=== PATIENT | female | born 1980 | race Caucasian/White ===

== ENCOUNTER 2018-08-04 15:06 | Emergency (ER) | payer OTHER, SELFPAY ==
[2018-08-04 15:12] VITALS: BP 119/78; PULSE 79; RESP 18; TEMP 36.6; O2SAT 96
--- NOTE | 2018-08-04 16:45 | PC.NURSE ---
pt states she gets to coughing and then starts throwing up because she cannot quit coughing. Says she has had cough syrup with codine, naproxin, and inhalers and none of them are helping and she states she feels worse today.
--- NOTE | 2018-08-04 17:04 | ED.URI ---
HPI - URI/Sore Throat <Paty Larsen PA-C - Last Filed: 08/04/18 21:54> General Chief Complaint: Upper Respiratory Symptoms Stated Complaint: cant breath, states pneumonia Time Seen by Provider: 08/04/18 16:28 Source: patient Mode of arrival: ambulatory Limitations: no limitations History of Present Illness HPI Narrative: This 37-year-old insulin-dependent diabetic female comes to ED due to persistent cough and chest pain. She states that she was seen at another local ED 5 days ago (records here) due to flank pain and was diagnosed with bibasilar pneumonia. She states that symptoms started with cough and pain in the flank area along with sweats and chills. She states that her throat is sore from the frequent cough and chest pain started on . She states that her ribs are sore all over and she feels like the pain is from coughing. It is also painful to take a deep breath. She states that the cough keeps her from sleep. She had a CT scan done in the ED as initially there was concern for kidney stone, and that showed the pneumonia. She states that she does not have earache or sinus pain. She has had some headache. She denies any new pain or swelling in her extremities. She denies any new rash. Her young daughter had pneumonia prior but is getting better. She was prescribed cephalexin as well as inhaler and dexamethasone. She thinks that the inhaler might help the cough briefly but still unable to sleep due to it. She states it is hard to tell whether she is just not making progress or getting worse due to lack of sleep from the cough. She states that in the last couple of days she has not had a fever higher than 100.2. She continues to have sweats and chills. She denies any history of blood clots Outside records show no urine bacteria on micro, negative urine HCG, negative influenza test, bilateral pneumonia on CT Related Data Home Medications Medication Instructions Recorded Confirmed insulin glargine (U-100) 100 12 unit SUBCUT DAILY 03/18/18 06/18/18 unit/mL (3 mL) subcutaneous pen insulin glulisine (U- 100) 100 2 unit SUBCUT BID ml 03/18/18 06/18/18 unit/mL subcutaneous pen liraglutide 0.6 mg/0.1 mL (18 mg/3 1.8 mg SUBCUT DAILY ml 03/18/18 06/18/18 mL) subcutaneous pen injector metformin 1,000 mg tablet 1,000 mg PO DAILY 03/18/18 06/18/18 Previous Rx's Medication Instructions Recorded verapamil ER 120 mg 24 hr 120 mg PO BID #60 cap 06/03/18 capsule,extended release benzonatate [Tessalon Perles] 200 mg PO Q8HR #20 cap 08/04/18 levofloxacin [Levaquin] 500 mg PO DAILY 7 Days #7 tab 08/04/18 Allergies Allergy/AdvReac Type Severity Reaction Status Date / Time acetaminophen [From Vicodin] AdvReac Mild Headache Verified 06/18/18 13:40 doxycycline AdvReac Mild Headache Verified 06/18/18 13:40 eletriptan AdvReac Mild Rash/Anxiet Verified 06/18/18 13:40 y hydrocodone [From Vicodin] AdvReac Mild Headache Verified 06/18/18 13:40 morphine AdvReac Mild Headache Verified 06/18/18 13:40 Review of Systems <Paty Larsen PA-C - Last Filed: 08/04/18 21:54> Review of Systems ROS Unobtainable: All systems reviewed & are unremarkable except as noted in HPI and below PFSH <Paty Larsen PA-C - Last Filed: 08/04/18 21:54> Medical History Chronic migraine (Chronic) Diabetes (Chronic) Surgical History No pertinent past surgical history (Chronic) Hx of right knee surgery (Resolved) Hx of tonsillectomy (Resolved) Family History Mother Gallstone Grandmother Gallstone Diabetes mellitus Stroke Grandfather Heart disease Cancer Social History Smoking Status: Never smoker Family History Mother Gallstone Grandmother Gallstone Diabetes mellitus Stroke Grandfather Heart disease Cancer Social History Smoking Status: Never smoker Exam <PRASHANTH Corey Last Filed: 08/04/18 21:54> Narrative Exam Narrative: GENERAL APPEARANCE: Patient sitting comfortably, in no distress. HEAD: No sinus TTP. EYES: PERRL, EOMI. EARS: Normal auditory canals, TMS intact with normal light reflexes. ORAL CAVITY: Normal oropharynx. THROAT: Clear. NECK/THYROID: Neck supple, full range of motion, no cervical lymphadenopathy. LUNGS: Clear to auscultation bilaterally, splinting slightly, dry, hoarse cough on exam CHEST: Generalized tenderness over the ribs and sternum HEART: RRR without murmur, nl S1, S2, no S3 or S4. DERMATOLOGIC: No exanthem Initial Vital Signs Initial Vital Signs: Vital Signs Temperature 97.9 F 08/04/18 15:12 Pulse Rate 79 08/04/18 15:12 Respiratory Rate 18 08/04/18 15:12 Blood Pressure 119/78 08/04/18 15:12 Pulse Oximetry 96 08/04/18 15:12 <Kira Vargas DO - Last Filed: 08/05/18 08:11> Initial Vital Signs Initial Vital Signs: Vital Signs Temperature 97.9 F 08/04/18 15:12 Pulse Rate 79 08/04/18 15:12 Respiratory Rate 18 08/04/18 15:12 Blood Pressure 119/78 08/04/18 15:12 Pulse Oximetry 96 08/04/18 15:12 Course <PRASHANTH Corey Last Filed: 08/04/18 21:54> Additional Information: Patient is resting comfortably after Tessalon Perle and nebulizer treatment. She reported improvement in her chest tightness and was coughing less. She was also given a spacer and training for her inhaler. She reports at least no improvement since starting on cephalexin, and we discussed concern for coverage of atypical organisms and broader coverage of pneumonia given her insulin-dependent diabetes and reactive airways. She has taken Cipro without problems in the past so she preferred to try Levaquin rather than change to azithromycin and amoxicillin or Augmentin. She was given 1st dose this evening and will continue that along with her inhaler and given a prescription for Tessalon Perles. She does not appear to need hospital admission at this time, but agrees to return to ED if acutely worsening again. Otherwise, she will follow up with her PCP in the next few days. Orders Ordered: Discontinued Medications Albuterol (Ventolin) 2.5 mg INH NOW ONE Stop: 08/04/18 17:28 Last Admin: 08/04/18 17:40 Dose: 2.5 mg Albuterol (Ventolin Hfa) 2 puff INH NOW ONE Stop: 08/04/18 17:57 Last Admin: 08/04/18 17:50 Dose: Not Given Albuterol/Ipratropium (Duoneb) 3 ml INH NOW ONE Stop: 08/04/18 17:28 Last Admin: 08/04/18 17:34 Dose: 3 ml Benzonatate (Tessalon Perles) 200 mg PO NOW ONE Stop: 08/04/18 17:18 Last Admin: 08/04/18 17:32 Dose: 200 mg Levofloxacin (Levaquin) 500 mg PO NOW ONE Stop: 08/04/18 19:23 Last Admin: 08/04/18 19:24 Dose: 500 mg Vital Signs - 8 hr 08/04/18 15:12 08/04/18 17:34 08/04/18 17:41 Temperature 97.9 F Pulse Rate 79 80 84 Respiratory Rate 18 18 18 Blood Pressure 119/78 Pulse Oximetry 96 96 97 08/04/18 19:55 Temperature 98.8 F Pulse Rate 85 Respiratory Rate 16 Blood Pressure 112/64 Pulse Oximetry 95 <Kira Vargas, - Last Filed: 08/05/18 08:11> Orders Ordered: Discontinued Medications Albuterol (Ventolin) 2.5 mg INH NOW ONE Stop: 08/04/18 17:28 Last Admin: 08/04/18 17:40 Dose: 2.5 mg Albuterol (Ventolin Hfa) 2 puff INH NOW ONE Stop: 08/04/18 17:57 Last Admin: 08/04/18 17:50 Dose: Not Given Albuterol/Ipratropium (Duoneb) 3 ml INH NOW ONE Stop: 08/04/18 17:28 Last Admin: 08/04/18 17:34 Dose: 3 ml Benzonatate (Tessalon Perles) 200 mg PO NOW ONE Stop: 08/04/18 17:18 Last Admin: 08/04/18 17:32 Dose: 200 mg Levofloxacin (Levaquin) 500 mg PO NOW ONE Stop: 08/04/18 19:23 Last Admin: 08/04/18 19:24 Dose: 500 mg Vital Signs - 8 hr 08/04/18 15:12 08/04/18 17:34 08/04/18 17:41 Temperature 97.9 F Pulse Rate 79 80 84 Respiratory Rate 18 18 18 Blood Pressure 119/78 Pulse Oximetry 96 96 97 08/04/18 19:55 Temperature 98.8 F Pulse Rate 85 Respiratory Rate 16 Blood Pressure 112/64 Pulse Oximetry 95 MDM - URI/Sore Throat <Paty Larsen PA-C - Last Filed: 08/04/18 21:54> Imaging Data Chest x-ray: Radiologist's impression: [address] [address] XRay Report Signed Patient: Martine Sanchez CMR#: [id number] : 1980Acct:[id number] Age/Sex: 37 / FDate of Service: 08/04/18 Loc: ED Accession Number: [id number] Procedure: XR chest 2V Ordering Provider: Paty Larsen P.A-C PROCEDURE: XR CHEST 2V INDICATIONS: cough, CP, dx RM and LLL pneumonia 07/30. ?worse TECHNIQUE: 2 views of the chest were acquired. COMPARISON: None. FINDINGS: Surgical changes and devices: None. Lungs and pleura: Parenchymal opacity right mid and lower lung zone without a visible pleural effusion. Mild retrocardiac strandy change at the left lung base. No pneumothorax. Mediastinum: Mediastinal contours are normal. Heart size is normal. Bones and chest wall: No suspicious bony abnormalities. Soft tissues appear unremarkable. IMPRESSION: Parenchymal opacity right mid and lower lung and possibly left lower lobe as well. No pleural effusions visible. Dictated by: Melissa Pineda M.D. on 08/04/2018 at 18:58 Approved by: Melissa Pineda M.D. on 08/04/2018 at 18:59 Discharge Plan Departure Patient Disposition: Home Clinical Impression: Pneumonia Qualifiers: Pneumonia type: due to unspecified organism Laterality: bilateral Lung location: unspecified part of lung Qualified Code(s): J18.9 - Pneumonia, unspecified organism Mild reactive airways disease Qualifiers: Asthma persistence: intermittent Asthma complication type: with acute exacerbation Qualified Code(s): J45.21 - Mild intermittent asthma with (acute) exacerbation Discharge Date/Time: 08/04/18 19:56 Interventions: ED Discharge Assessment Last Done: 08/04/18 19:55 Instructions: DI for Pneumonia -- Adult, DI for Reactive Airway Disease-Adult Activity Restrictions/Additional Instructions: Please stop the cephalexin. We have given you the 1st dose of Levaquin (levofloxacin) this evening since you did well with its cousin, Martha, in the past. I have sent a prescription for that to your pharmacy ([facility]) to peanut picker tomorrow. I have also sent a prescription for the cough pill that we gave you tonight that seemed to help. Please continue to use the inhaler with the spacer as much as needed for cough and tight chest since the breathing treatments seem to help this evening as well. If you are feeling acutely worse, you should return to the closest ED, but otherwise you should follow-up with your PCP in the next 2 or 3 days to assess your progress. Prescriptions: New benzonatate [Tessalon Perles] 100 mg capsule 200 mg PO Q8HR Qty: 20 RF: 0 levofloxacin [Levaquin] 500 mg tablet 500 mg PO DAILY 7 Days Qty: 7 RF: 0 No Action metformin 1,000 mg tablet 1,000 mg PO DAILY RF: 0 insulin glargine [Lantus Solostar U-100 Insulin] 100 unit/mL (3 mL) insulin pen 12 unit SUBCUT DAILY RF: 0 insulin glulisine U-100 [Apidra SoloStar U-100 Insulin] 100 unit/mL insulin pen 2 unit SUBCUT BID RF: 0 liraglutide [Victoza 2-Roberto Carlos] 0.6 mg/0.1 mL (18 mg/3 mL) pen injector 1.8 mg SUBCUT DAILY RF: 0 verapamil 120 mg capsule,ext rel. pellets 24 hr 120 mg PO BID Qty: 60 RF: 2 Referrals: Giselle Hampton PA-C [Primary Care Provider] - <Kira Vargas DO - Last Filed: 08/05/18 08:11> Cosign ED Attending Daronature Attestation: I was immediately available in the department for consultation. Documentation has been reviewed. I agree with assessment and plan.
--- NOTE | 2018-08-04 17:17 | DI.RAD.S_ITS ---
PROCEDURE: XR CHEST 2V INDICATIONS: cough, CP, dx RM and LLL pneumonia 07/30. ?worse TECHNIQUE: 2 views of the chest were acquired. COMPARISON: None. FINDINGS: Surgical changes and devices: None. Lungs and pleura: Parenchymal opacity right mid and lower lung zone without a visible pleural effusion. Mild retrocardiac strandy change at the left lung base. No pneumothorax. Mediastinum: Mediastinal contours are normal. Heart size is normal. Bones and chest wall: No suspicious bony abnormalities. Soft tissues appear unremarkable. IMPRESSION: Parenchymal opacity right mid and lower lung and possibly left lower lobe as well. No pleural effusions visible. Dictated by: Melissa Pineda M.D. on 08/04/2018 at 18:58 Approved by: Melissa Pineda M.D. on 08/04/2018 at 18:59
--- NOTE | 2018-08-04 17:27 | ED_ITS ---
HPI - URI/Sore Throat <Paty Larsen PA-C - Last Filed: 08/04/18 21:54> General Chief Complaint: Upper Respiratory Symptoms Stated Complaint: cant breath, states pneumonia Time Seen by Provider: 08/04/18 16:28 Source: patient Mode of arrival: ambulatory Limitations: no limitations History of Present Illness HPI Narrative: This 37-year-old insulin-dependent diabetic female comes to ED du e to persistent cough and chest pain. She states that she was seen at another local ED 5 days ago (records here) due to flank pain and was diagnosed with bibasilar pneumonia. She states that symptoms started with cough and pain in the flank area along with sweats and chills. She states that her throat is sore from the frequent cough and chest pain started on . She states that her ribs are sore all over and she feels like the pain is from coughing. It is also painful to take a deep breath. She states that the cough keeps her from sleep. She had a CT scan done in the ED as initially there was concern for kidney stone, and that showed the pneumonia. She states that she does not have earache or sinus pain. She has had some headache. She denies any new pain or swelling in her extremities. She denies any new rash. Her young daughter had pneumonia prior but is getting better. She was prescribed cephalexin as well as inhaler and dexamethasone. She thinks that the inhaler might help the cough briefly but still unable to sleep due to it. She states it is hard to tell whether she is just not making progress or getting worse due to lack of sleep from the cough. She states that in the last couple of days she has not had a fever higher than 100.2. She continues to have sweats and chills. She denies any history of blood clots Outside records show no urine bacteria on micro, negative urine HCG, negative influenza test, bilateral pneumonia on CT Related Data Home Medications Medication Instructions Recorded Confirmed insulin glargine (U-100) 100 12 unit SUBCUT DAILY 03/18/18 06/18/18 unit/mL (3 mL) subcutaneous pen insulin glulisine (U- 100) 100 2 unit SUBCUT BID ml 03/18/18 06/18/18 unit/mL subcutaneous pen liraglutide 0.6 mg/0.1 mL (18 mg/3 1.8 mg SUBCUT DAILY ml 03/18/18 06/18/18 mL) subcutaneous pen injector metformin 1,000 mg tablet 1,000 mg PO DAILY 03/18/18 06/18/18 Previous Rx's Medication Instructions Recorded verapamil ER 120 mg 24 hr 120 mg PO BID #60 cap 06/03/18 capsule,extended release benzonatate [Tessalon Perles] 200 mg PO Q8HR #20 cap 08/04/18 levofloxacin [Levaquin] 500 mg PO DAILY 7 Days #7 tab 08/04/18 Allergies Allergy/AdvReac Type Severity Reaction Status Date / Time acetaminophen [From Vicodin] AdvReac Mild Headache Verified 06/18/18 13:40 doxycycline AdvReac Mild Headache Verified 06/18/18 13:40 eletriptan AdvReac Mild Rash/Anxiet Verified 06/18/18 13:40 y hydrocodone [From Vicodin] AdvReac Mild Headache Verified 06/18/18 13:40 morphine AdvReac Mild Headache Verified 06/18/18 13:40 Review of Systems <Paty Larsen PA-C - Last Filed: 08/04/18 21:54> Review of Systems ROS Unobtainable: All systems reviewed & are unremarkable except as noted in HPI and below PFSH <Paty Larsen PA-C - Last Filed: 08/04/18 21:54> Medical History Chronic migraine (Chronic) Diabetes (Chronic) Surgical History No pertinent past surgical history (Chronic) Hx of right knee surgery (Resolved) Hx of tonsillectomy (Resolved) Family History Mother Gallstone Grandmother Gallstone Diabetes mellitus Stroke Grandfather Heart disease Cancer Social History Smoking Status: Never smoker Family History Mother Gallstone Grandmother Gallstone Diabetes mellitus Stroke Grandfather Heart disease Cancer Social History Smoking Status: Never smoker Exam <Paty Larsen PA-C - Last Filed: 08/04/18 21:54> Narrative Exam Narrative: GENERAL APPEARANCE: Patient sitting comfortably, in no distress. HEAD: No sinus TTP. EYES: PERRL, EOMI. EARS: Normal auditory canals, TMS intact with normal light reflexes. ORAL CAVITY: Normal oropharynx. THROAT: Clear. NECK/THYROID: Neck supple, full range of motion, no cervical lymphadenopathy. LUNGS: Clear to auscultation bilaterally, splinting slightly, dry, hoarse cough on exam CHEST: Generalized tenderness over the ribs and sternum HEART: RRR without murmur, nl S1, S2, no S3 or S4. DERMATOLOGIC: No exanthem Initial Vital Signs Initial Vital Signs: Vital Signs Temperature 97.9 F 08/04/18 15:12 Pulse Rate 79 08/04/18 15:12 Respiratory Rate 18 08/04/18 15:12 Blood Pressure 119/78 08/04/18 15:12 Pulse Oximetry 96 08/04/18 15:12 <Kira Vargas DO - Last Filed: 08/05/18 08:11> Initial Vital Signs Initial Vital Signs: Vital Signs Temperature 97.9 F 08/04/18 15:12 Pulse Rate 79 08/04/18 15:12 Respiratory Rate 18 08/04/18 15:12 Blood Pressure 119/78 08/04/18 15:12 Pulse Oximetry 96 08/04/18 15:12 Course <PRASHANTH Corey Last Filed: 08/04/18 21:54> Additional Information: Patient is resting comfortably after Tessalon Perle and nebulizer treatment. She reported improvement in her chest tightness and was coughing less. She was also given a spacer and training for her inhaler. She reports at least no improvement since starting on cephalexin, and we discussed concern for coverage of atypical organisms and broader coverage of pneumonia given her insulin-dependent diabetes and reactive airways. She has taken Cipro without problems in the past so she preferred to try Levaquin rather than change to azithromycin and amoxicillin or Augmentin. She was given 1st dose this [place] and will continue that along with her inhaler and given a prescription for Tessalon Perles. She does not appear to need hospital admission at this time, but agrees to return to ED if acutely worsening again. Otherwise, she will follow up with her PCP in the next few days. Orders Ordered: Discontinued Medications Albuterol (Ventolin) 2.5 mg INH NOW ONE Stop: 08/04/18 17:28 Last Admin: 08/04/18 17:40 Dose: 2.5 mg Albuterol (Ventolin Hfa) 2 puff INH NOW ONE Stop: 08/04/18 17:57 Last Admin: 08/04/18 17:50 Dose: Not Given Albuterol/Ipratropium (Duoneb) 3 ml INH NOW ONE Stop: 08/04/18 17:28 Last Admin: 08/04/18 17:34 Dose: 3 ml Benzonatate (Tessalon Perles) 200 mg PO NOW ONE Stop: 08/04/18 17:18 Last Admin: 08/04/18 17:32 Dose: 200 mg Levofloxacin (Levaquin) 500 mg PO NOW ONE Stop: 08/04/18 19:23 Last Admin: 08/04/18 19:24 Dose: 500 mg Vital Signs - 8 hr 08/04/18 15:12 08/04/18 17:34 08/04/18 17:41 Temperature 97.9 F Pulse Rate 79 80 84 Respiratory Rate 18 18 18 Blood Pressure 119/78 Pulse Oximetry 96 96 97 08/04/18 19:55 Temperature 98.8 F Pulse Rate 85 Respiratory Rate 16 Blood Pressure 112/64 Pulse Oximetry 95 <Kira Vargas, - Last Filed: 08/05/18 08:11> Orders Ordered: Discontinued Medications Albuterol (Ventolin) 2.5 mg INH NOW ONE Stop: 08/04/18 17:28 Last Admin: 08/04/18 17:40 Dose: 2.5 mg Albuterol (Ventolin Hfa) 2 puff INH NOW ONE Stop: 08/04/18 17:57 Last Admin: 08/04/18 17:50 Dose: Not Given Albuterol/Ipratropium (Duoneb) 3 ml INH NOW ONE Stop: 08/04/18 17:28 Last Admin: 08/04/18 17:34 Dose: 3 ml Benzonatate (Tessalon Perles) 200 mg PO NOW ONE Stop: 08/04/18 17:18 Last Admin: 08/04/18 17:32 Dose: 200 mg Levofloxacin (Levaquin) 500 mg PO NOW ONE Stop: 08/04/18 19:23 Last Admin: 08/04/18 19:24 Dose: 500 mg Vital Signs - 8 hr 08/04/18 15:12 08/04/18 17:34 08/04/18 17:41 Temperature 97.9 F Pulse Rate 79 80 84 Respiratory Rate 18 18 18 Blood Pressure 119/78 Pulse Oximetry 96 96 97 08/04/18 19:55 Temperature 98.8 F Pulse Rate 85 Respiratory Rate 16 Blood Pressure 112/64 Pulse Oximetry 95 MDM - URI/Sore Throat <Paty Larsen PA-C - Last Filed: 08/04/18 21:54> Imaging Data Chest x-ray: Radiologist's impression: [address] [address] XRay Report Signed Patient: Martine Sanchez CMR#: [id number] : 1980Acct:[id number] Age/Sex: 37 / FDate of Service: 08/04/18 Loc: ED Accession Number: [id number] Procedure: XR chest 2V Ordering Provider: aPty Larsen P.A-C PROCEDURE: XR CHEST 2V INDICATIONS: cough, CP, dx RM and LLL pneumonia 07/30. ?worse TECHNIQUE: 2 views of the chest were acquired. COMPARISON: None. FINDINGS: Surgical changes and devices: None. Lungs and pleura: Parenchymal opacity right mid and lower lung zone without a visible pleural effusion. Mild retrocardiac strandy change at the left lung base. No pneumothorax. Mediastinum: Mediastinal contours are normal. Heart size is normal. Bones and chest wall: No suspicious bony abnormalities. Soft tissues appear unremarkable. IMPRESSION: Parenchymal opacity right mid and lower lung and possibly left lower lobe as well. No pleural effusions visible. Dictated by: Melissa Pineda M.D. on 08/04/2018 at 18:58 Approved by: Melissa Pineda M.D. on 08/04/2018 at 18:59 Discharge Plan Departure Patient Disposition: Home Clinical Impression: Pneumonia Qualifiers: Pneumonia type: due to unspecified organism Laterality: bilateral Lung location: unspecified part of lung Qualified Code(s): J18.9 - Pneumonia, unspecified organism Mild reactive airways disease Qualifiers: Asthma persistence: intermittent Asthma complication type: with acute exacerbation Qualified Code(s): J45.21 - Mild intermittent asthma with (acute) exacerbation Discharge Date/Time: 08/04/18 19:56 Interventions: ED Discharge Assessment Last Done: 08/04/18 19:55 Instructions: DI for Pneumonia -- Adult, DI for Reactive Airway Disease-Adult Activity Restrictions/Additional Instructions: Please stop the cephalexin. We have given you the 1st dose of Levaquin (levofloxacin) this evening since you did well with its cousin, Martha, in the past. I have sent a prescription for that to your pharmacy ([facility]) to pickle solution maker tomorrow. I have also sent a prescription for the cough pill that we gave you tonight that seemed to help. Please continue to use the inhaler with the spacer as much as needed for cough and tight chest since the breathing treatments seem to help this evening as well. If you are feeling acutely worse, you should return to the closest ED, but otherwise you should follow-up with your PCP in the next 2 or 3 days to assess your progress. Prescriptions: New benzonatate [Tessalon Perles] 100 mg capsule 200 mg PO Q8HR Qty: 20 RF: 0 levofloxacin [Levaquin] 500 mg tablet 500 mg PO DAILY 7 Days Qty: 7 RF: 0 No Action metformin 1,000 mg tablet 1,000 mg PO DAILY RF: 0 insulin glargine [Lantus Solostar U-100 Insulin] 100 unit/mL (3 mL) insulin pen 12 unit SUBCUT DAILY RF: 0 insulin glulisine U-100 [Apidra SoloStar U-100 Insulin] 100 unit/mL insulin pen 2 unit SUBCUT BID RF: 0 liraglutide [Victoza 2-Roberto Carlos] 0.6 mg/0.1 mL (18 mg/3 mL) pen injector 1.8 mg SUBCUT DAILY RF: 0 verapamil 120 mg capsule,ext rel. pellets 24 hr 120 mg PO BID Qty: 60 RF: 2 Referrals: Giselle Hampton PA-C [Primary Care Provider] - <Kira Vargas DO - Last Filed: 08/05/18 08:11> Cosign ED Attending Daronature Attestation: I was immediately available in the department for consultation. Documentation has been reviewed. I agree with assessment and plan.
[2018-08-04] MEDS: BENZONATATE 100 MG CAPSULE 200 MG PO (17:32)
[2018-08-04 17:34] VITALS: PULSE 80; RESP 18; O2SAT 96
[2018-08-04] MEDS: ALBUTEROL/IPRATROPIUM 3 ML AMPUL INH (17:34)
[2018-08-04] MEDS: ALBUTEROL 2.5 MG/3 ML NEB (ADULT) INH (17:40)
[2018-08-04 17:41] VITALS: PULSE 84; RESP 18; O2SAT 97
[2018-08-04] MEDS: levoFLOXacin 250 MG TABLET 500 MG PO (19:24)
[2018-08-04 19:55] VITALS: BP 112/64; PULSE 85; RESP 16; TEMP 37.1; O2SAT 95
== END 2018-08-04 19:56 | disposition home or self-care (01) ==
PROVIDERS: Emergency Provider Internal Medicine; PCP Physician Assistant
DX: J18.9 Pneumonia, unspecified organism (principal); J45.21 Mild intermittent asthma with (acute) exacerbation
CPT/HCPCS: 71046; 94640; 99282; 99284; J7613

== ENCOUNTER → 2021-05-26 16:13 | Outpatient (CLI) | payer OTHER, SELFPAY ==
[2021-05-26 16:53] LABS: Add Manual Diff / Slide Review NO; Basophils Absolute Auto 100 /uL (0-100); Basophils Percent Auto 0.8 % (0-2); Eosinophils Absolute Auto 100 /uL (0-450); Eosinophils Percent Auto 1.2 % (2-4); Hematocrit 38.2 % (36-46); Hemoglobin 12.8 g/dL (12.0-16.0); Lymphocytes Absolute Auto 3100 /uL (1100-4500); Lymphocytes Percent Auto 34.6 % (25-40); Mean Corpuscular HGB Conc 33.5 % (30-36); Mean Corpuscular Hemoglobin 29.7 PG (26-34); Mean Corpuscular Volume 88.7 fL (80-100); Monocytes Absolute Auto 400 /uL (0-900); Monocytes Percent Auto 4.4 % (3-14); Neutrophils Absolute Auto 5300 /uL (1500-7000); Platelet Count 402 X10^3/uL (150-400); Red Blood Cell Count 4.31 X10^6/uL (4.0-5.2); Red Cell Distribution Width 13.4 % (11.6-14.8); White Blood Cell Count 9.1 X10^3/uL (4.5-11.0)
[2021-05-26 17:03] LABS: Hemoglobin A1C% w Est Avg Glu 8.3 % (4.0-6.0)
[2021-05-26 17:34] LABS: BUN Creatinine Ratio 18.4 (6-22); Blood Urea Nitrogen 9 mg/dL (7-17); Carbon Dioxide 24 mmol/L (22-32); Chloride 102 mmol/L (98-107); Estimated Glomerular Filt Rate > 60.0 mL/min (>60); Glucose 201 mg/dL (70-100); HEMOLYSIS < 15 (0-50); Potassium 4.1 mmol/L (3.4-5.1); Sodium 136 mmol/L (137-145)
== END ==
PROVIDERS: PCP Physician Assistant; Referring Provider Orthopaedic Surgery Orthopaedic Surgery of the Spine; Visit Provider Orthopaedic Surgery Orthopaedic Surgery of the Spine
DX: Z01.818 Encounter for other preprocedural examination (principal); Z01.812 Encounter for preprocedural laboratory examination; R73.9 Hyperglycemia, unspecified
CPT/HCPCS: 36415; 80048; 83036; 85025; 93005; 93010

== ENCOUNTER 2021-08-03 05:54 | Day surgery (SDC) | payer OTHER, SELFPAY ==
[2021-06-07 09:59] VITALS: BMI 35.7
[2021-08-03] VITALS (18 sets, daily range): BP systolic 110–147; BP diastolic 46–85; PULSE 57–102; RESP 12–20; TEMP 36–36.7; O2SAT 92–99; BMI 35.7
--- NOTE | 2021-08-03 | DI.RAD.S_ITS ---
PROCEDURE: XR CERVICAL SPINE 2V OR 3V INDICATIONS: C5-6 C6-7 ACDF TECHNIQUE: 2 view(s) of the cervical spine were acquired. COMPARISON: [facility] Outside Film, MR, MR CERVICAL SPINE WITHOUT CONTRAST, 05/22/2020, 17:38. [facility] Outside Film, CR, XR CERVICAL SPINE 2 OR 3 VIEWS, 12/11/2019, 9:14. FINDINGS: Bones: Postsurgical changes compatible with C5-C7 ACDF. Orthopedic hardware is in expected position. Orthopedic hardware is intact. Soft tissues: No prevertebral soft tissue swelling. IMPRESSION: Expected postsurgical change for C5-C7 ACDF. Dictated by: Herlinda Tucker MD, PhD on 08/03/2021 at 11:17 Approved by: Herlinda Tucker MD, PhD on 08/03/2021 at 11:18
[2021-08-03] MEDS: GABAPENTIN 300 MG CAPSULE PO (06:58)
--- NOTE | 2021-08-03 07:21 | SUR.OPER ---
Supine, head on gel donut. Arms padded with gel pads, tucked at sides, towel roll under shoulders. Safety belt at thigh. Legs uncrossed.
[2021-08-03] MEDS: LACTATED RINGERS 1,000 ML 42 ML IV (07:27)
--- NOTE | 2021-08-03 07:32 | SUR.PREOP ---
0729-lab called on pending covid test- now running-eta 14 minutes-OR discharge specialist notified.
--- NOTE | 2021-08-03 07:41 | PM.HP.1 ---
History of Present Illness History of Present Illness Date Patient Seen: 08/03/21 Time Patient Seen: 07:41 Date of Onset of Symptoms: 03/16/20 Chief complaint: Cervical fusion *OPB* Narrative: Ms. Sanchez is here for chronic cervical radiculopathy. She is having right arm pain, weakness and numbness. She failed conservative c Patient History Medical History Chronic migraine Diabetes GERD (gastroesophageal reflux disease) Spinal stenosis in cervical region Surgical History Hx of arthroscopy of right knee (~1993) Hx of shoulder surgery (1999) Hx of thumb surgery (2009) Hx of tonsillectomy Family & Social History Family History Mother Gallstone Grandmother Gallstone Diabetes mellitus Stroke Grandfather Heart disease Cancer Social History: household members spouse,children Prior Living Arrangements House Safety & Behavioral: Feels Safe in Current Yes Environment Been Physically Hurt or No Threatened By a Person Suicidal Ideation Description None Suicide Plan Description No Plan Tobacco & Substance use: Smoking Status Never smoker alcohol intake never Substance Use Type does not use Meds Home Medications and Allergies Home Medications Medication Instructions Recorded Confirmed Type liraglutide 0.6 mg/0.1 mL (18 mg/3 1.8 mg SUBCUT DAILY ml 03/18/18 08/03/21 History mL) subcutaneous pen injector (Victoza 2-Roberto Carlos) metformin 1,000 mg tablet 1,000 mg PO BID 03/18/18 08/03/21 History acetaminophen 500 mg capsule 1,000 mg PO QD-BID PRN 06/07/21 08/03/21 History amitriptyline 25 mg tablet 25 mg PO BEDTIME 06/07/21 08/03/21 History empagliflozin 10 mg tablet 10 mg PO DAILY 06/07/21 08/03/21 History (Jardiance) ibuprofen 200 mg tablet 400 mg PO DAILY 06/07/21 08/03/21 History oxycodone 5 mg tablet 5 mg PO BID 06/07/21 08/03/21 History Allergies Allergy/AdvReac Type Severity Reaction Status Date / Time doxycycline Allergy Severe Sun Verified 08/03/21 06:52 poisoning, my skin blew up like a jellyfish eletriptan Allergy Severe Rash/Anxiet Verified 08/03/21 06:52 y hydrocodone [From Vicodin] AdvReac Severe Headaches, Verified 08/03/21 06:52 vomiting morphine AdvReac Severe Vomiting, Verified 08/03/21 06:52 hallucinations Exam Vital Signs (past 8 hours): - 08/03/21 06:58 Temperature 97 F L Pulse Rate 80 Respiratory Rate 18 Blood Pressure 133/85 Pulse Oximetry 98 Oxygen Delivery Method Room Air Assessment & Plan Time Spent With Patient Critical Care time: I spent a total of [] minutes of critical care time on this patient's care today; this time is exclusive of procedural time.
[2021-08-03 07:46] LABS: COVID19 -Nasal RAPID Negative (Negative)
--- NOTE | 2021-08-03 07:50 | PM.OP.1 ---
Operative Date/Time/Diagnoses Date of procedure: 08/03/21 Time of procedure: 08:15 Pre-op diagnosis: 1. C5-6, C6-7 spinal stenosis 2. C5-6, C6-7 spondylosis with radiculopathy Post-op diagnosis: same Procedure & Clinicians Procedure: 1. C5-6 C6-7 anterior cervical diskectomy and fusion 2. C5-6 C6-7 anterior interbody cage placement 3. C5-6 C6-7 anterior instrumentation with plate and screw placement in C5-C6 and C7 vertebrae 4. Utilization of microsurgical technique and operating microscope Same procedure as scheduled: Yes Indications: Patient has been having chronic neck pain and worsening cervical radiculopathy. Patient failed multiple conservative management with worsening pain weakness and numbness in her upper extremity. Patient has been having difficulty performing activity of daily living. After discussing risks benefits of treatment options, patient elected proceed with surgery. Surgeon: Maria De Jesus Sahni Registered Private Duty Nurse: Julee Roy Click Yes if Unassisted: No Anesthesia Type: General Operative Notes Closure Type: primary Specimen(s): none sent Prosthetic devices, grafts, tissues, transplants, or devices: Globus Extend plate, PEEK cages Estimated Blood Loss (mL): 5 Blood products transfused: none Procedure in detail: Patient was seen in the preoperative area. Risks and benefits of the surgery was discussed with the patient. Operative consent was obtained and placed in the chart. Patient was then taken to the operative room. Prophylactic antibiotic was given less than 0.5 hr prior to skin incision. General anesthesia was administered. Patient was placed into a supine position on her radiolucent table. Bilateral shoulders were taped down to allow proper C-arm imaging. Anterior cervical area was prepped and draped in a sterile fashion. Time-out was performed at this time. Using lateral C-arm imaging, the level between C5 and C7 was identified and marked on patient's neck. A oblique incision from midline towards medial border of sternocleidomastoid muscle was made. The platysma muscle was incised in line with skin incision. Metzenbaum scissor was used to develop the plane between the medial border of sternocleidomastoid d and the strap muscles medially. The carotid sheath and its contents were identified and protected behind the hand-held retractor during the entire case. The plane between the carotid sheath and strap muscles was developed with Metzenbaum scissors. Dissection was made down to the level of the anterior cervical fascia. Longus colli muscle was incised on the anterior aspect of vertebral bodies bilaterally from C5-C7. Spinal needle was placed into the C5-6 disc space and confirmed with lateral C-arm imaging. Using microsurgical technique and operative microscope, anterior cervical diskectomy was performed at C5-6 and C6-7 level. This was done by removing the disc material, removing the anterior and posterior osteophytes posterior longitudinal ligaments along with performing bilateral foraminotomies at both levels. Patient was found to have severe central and foraminal stenosis at both levels. Patient's stenosis was fully decompressed after decompression was completed. After the diskectomy was completed, 2 anterior interbody cages were obtained. The cages were packed with DBM bone grafting material. One cage each along with the bone grafting material was then packed into the interbody spaces from C5-C7 with one cage into each interbody level. After the cages were placed, the anterior cervical plate was stabilized to the C5-C7 vertebrae using 2 screws at each each level. Total 6 screws were placed. After confirming placement of the hardware with AP and lateral C-arm imaging, the screws were locked into the plate using the locking mechanism and torque limiting screwdriver. After the hardware was placed and confirmed with AP and lateral C-arm imaging, the wound was irrigated with sterile normal saline. The platysma muscle and the subcutaneous tissue was closed with 2-0 Vicryl. The skin was closed with 4-0 Monocryl and Steri-Strips. Patient tolerated the procedure well. Patient was transferred recovery room in stable condition. There were no complications. Complications: none Post-operative Condition: stable Disposition: PACU Plan for aftercare: Admit to inpatient hospital
[2021-08-03] MEDS: CEFAZOLIN 2 GM/20 ML SYRINGE IV ×3 (08:10→23:41)
--- NOTE | 2021-08-03 09:02 | SUR.OPER ---
Patient was late in the room, we waited for covid test result and the anesthesiologist was looking for the glidescope everywhere.
[2021-08-03] MEDS: BUPIVACAINE 0.25% (PF) 60 ML, EPINEPHrine 0.3 MG INJ (09:58)
[2021-08-03] MEDS: HYDROMORPHONE 2 MG INJ 0.5 MG IV ×4 (10:38→11:14)
[2021-08-03] MEDS: OXYCODONE IR 5 MG TABLET PO ×2 (10:58→15:04)
[2021-08-03] MEDS: ONDANSETRON 4 MG/2 ML INJ IV ×3 (11:28→20:42)
[2021-08-03] MEDS: SODIUM CHLORIDE 0.9% 1,000 ML 100 ML IV ×2 (12:22→22:14)
[2021-08-03] MEDS: HYDROMORPHONE 0.5 MG INJ 0.2 MG IV ×4 (13:58→23:09)
--- NOTE | 2021-08-03 14:58 | OT.IP.EVAL ---
Current Diagnoses Other spondylosis with radiculopathy, cervical region (08/03/21) Spinal stenosis, cervical region (08/03/21) Surgery Performed Operation Date: 08/03/21 07:45 Actual Procedures p C5-6,C6-7 ACDF with anterior instrumentation - Maria De Jesus Sahni MD Past Medical History (Last Reviewed 08/03/21 @ 06:52 by Pati Hoffman, RN) Chronic migraine Diabetes GERD (gastroesophageal reflux disease) Hx of arthroscopy of right knee (~1993) Hx of shoulder surgery (1999) Hx of thumb surgery (2009) Hx of tonsillectomy Spinal stenosis in cervical region Surgical History (Last Reviewed 08/03/21 @ 06:52 by Pati Hoffman, JIM) Hx of arthroscopy of right knee (~1993) Hx of shoulder surgery (1999) Hx of thumb surgery (2009) Hx of tonsillectomy Occupational Therapy Inpatient Evaluation/Re-Eval M1 PT/OT-IP Prior Functional Status Start: 08/03/21 15:53 Freq: NEEDED Status: Active Protocol: Document 08/03/21 15:57 CGR (Rec: 08/03/21 16:14 CGR [id number]) Medical Review Prior Functional Status Medical History Reviewed Yes Communication Pt is an effective verbal communicator. Mobility and Gait Pt was IND in all mobility. Activities of Daily Living and IADL's Pt was IND in all ADLs but states that she sometimes had difficulty with doing her hair or fastening her bra. Prior Functional Level (Other details) Pt states she can drive but sometimes doesn't feel comfortable driving and will call her to come pick her up. 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 Social History Household Members spouse,children Living Arrangements House Number of Floors (Floors) One Floor Number of Stairs To Enter/Railing? 4 steps to enter with b railings Home Environment Standard Height Toilet,Walk in Shower Home Equipment Hand Held Shower Additional Social History Comment Pt states that she just purchased grab bars and her mother is planning on putting them in prior to her returning home. Pt lives with her Jackson and her 11 year old daughter, Yousif. M2 OT-IP Current Condition Start: 08/03/21 15:53 Freq: Status: Active Protocol: Document 08/03/21 15:57 CGR (Rec: 08/03/21 16:14 CGR [id number]) Occupational Therapy Current Condition Current Condition Evaluation Date 08/03/21 Treatment Diagnosis c5-7 ACDF Diagnosis Onset Date 08/03/21 Post Operative Precautions Cervical Spine Precautions Soft Collar for Comfort,No Heavy Lifting,Log Roll M3 OT- IP Subjective and Pain Start: 08/03/21 15:53 Freq: Status: Active Protocol: Document 08/03/21 15:57 CGR (Rec: 08/03/21 16:14 CGR [id number]) OT- Subjective Occupational Therapy Visit Type Type Initial Evaluation Visit Start Time 14:33 Visit Stop Time 14:58 Total Visit Minutes 25 Notes Pt is nauseated. OT Pain Assessment Pain When Pain Assessed At Rest Pain Present Pain Present Pain Reported Location Anterior Neck Intensity 7 Scale Used Numeric (0 - 10) Management Techniques Distraction,Modification of Treatment,Re-positioning M4 OT- IP ADL's Start: 08/03/21 15:53 Freq: Status: Active Protocol: Document 08/03/21 15:57 CGR (Rec: 08/03/21 16:14 CGR [id number]) OT OEK-Aeye-Vinibey General Evaluation Self-Feeding Ability Independent Comments OT Self-Feeding Comments able to get cup to mouth OT ADL-Grooming Comments OT Grooming Comments not performed OT ADL-Oral Care Comments Oral Care Comments not performed OT ADL-Dressing General Eval Lower Body Dressing Ability Total Assistance Areas Needing Assistance Socks OT ADL-Toileting Comments OT Toileting Comments not performed OT ADL-Bathing Comments OT Bathing Comments not performed M5 OT- IP IADL's Start: 08/03/21 15:53 Freq: Status: Active Protocol: Document 08/03/21 15:57 CGR (Rec: 08/03/21 16:14 CGR [id number]) OT-Instrumental Activities of Daily Living Deficits IADL Deficits Identified No Deficits Home Safety Awareness Awareness of Need for Assistance at Home Good Awareness Ability to Problem Solve Emergency Able to Problem Solve Situations Medication Management Medication Management No Deficits Identified Money Management Money Management No Deficits Identified Meal Preparation Meal Preparation Caregiver Provides Assist Jewel [employer] 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 [employer] 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 Caregiver Provides Assist Driving Driving Caregiver Provides Assist M6 OT- IP Functional Cognition Start: 08/03/21 15:53 Freq: Status: Active Protocol: Document 08/03/21 15:57 CGR (Rec: 08/03/21 16:14 CGR [id number]) Cognitive Factors Limiting Selfcare Function Cognitive Ability Level of Alertness Alert Patient Orientation Name,Age,Birthday,Month,Date, Year,Day of Week,Place, Situation Attention Span Ability Capable of Focused Attention, Capable of Sustained Attention Ability to Follow Commands Able to Follow Multi-Step Commands OT- Vision and Hearing OT- Hearing Assessment OT- Hearing Assessment WFL OT- Vision Assessment Visual Acuity Glasses All The Time Visual Attentiveness WFL Occular Pursuits WFL Visual Convergence WFL M7 OT- IP Mobility and Balance Start: 08/03/21 15:53 Freq: Status: Active Protocol: Document 08/03/21 15:57 CGR (Rec: 08/03/21 16:14 CGR [id number]) OT- Bed Mobility Assessment Rolling Type of Rolling Log Rolling,Roll to Left Level of Assistance Contact Guard Assistance,Head of Bed Elevated Supine to Sit Supine to Sit Assist Minimal Assistance Scooting Scooting to Edge of Bed Standby Assistance OT-Transfer Assessment Sit to and From Stand Sit to and from Stand Contact Guard Assistance Transfers Transfer Ability Contact Guard Assistance Technique Transfer Destination Bed,Chair Transfer Technique Stand Step Pivot Devices Transfer Assistive Devices Gait Belt Comments Mobility Comments Pt stood and transfered to the chair at bedside. OT- Balance Assessment Sitting Balance and Reactions Static Sitting Balance Ability Normal Dynamic Sitting Balance Ability Normal M8 OT- IP Objective Assessments Start: 08/03/21 15:53 Freq: Status: Active Protocol: Document 08/03/21 15:57 CGR (Rec: 08/03/21 16:14 CGR [id number]) OT Gross Range of Motion Upper Extremity Range of Motion Assessment Within Functional Limits OT Strength Comments Strength Comments shlds not tested d/t pain, arms 4/5, r hand 3+/5, L hand 4/5 OT- Coordination Assessment Upper Extremity Finger to Nose Test Within Functional Limits Finger Tapping Test Within Functional Limits Comments Coordination Comments Pt states more focus needed for the R hand to perform tasks OT-Muscle Tone Assessment Muscle Tone WNL Yes OT Sensation Assessment Edema Edema Absent M9 OT- IP Assessment and Plan Start: 08/03/21 15:53 Freq: Status: Active Protocol: Document 08/03/21 15:57 CGR (Rec: 08/03/21 16:14 CGR [id number]) OT Summary Assessment and Plan Potential Rehabilitation Potential Excellent Analytic Complexity at Evaluation Moderate Summary OT Impairments Pain,Strength,Balance, Functional Mobility,Grooming, Dressing,Toileting,Bathing, Toilet Transfers,Shower Transfers,Activity Tolerance Progress Towards Goals Slow Progress due to Pain,Slow Progress due to Medical Issues Assessment Summary Pt presents as a moderate complexity evaluation s/p admit for c5-7 ACDF. Pt is progressing well but nauseated at this time so session was limited. Pt will benefit from OT services tomorrow to address ADLs at home. Recommend d/c home with family . Goals Grooming Goal Independent Dressing Goal Independent Toileting Goal Independent Bathing Goal Independent Toilet Transfer Goal Independent Shower Transfer Goal Independent Days to Meet Goals 3 Frequency of Treatment Frequency Of Treatment Once a Day Treatment Plan OT Treatment Plan ADL Training,Functional Mobility,Patient/Family Education,Discharge Planning Other Treatment Recommendations and Next LB dressing, cervical Treatment Focus precautions Discharge Recommendations OT Discharge Recommendations Home with Assistance Transportation Needs at Discharge Private Vehicle
[2021-08-03] MEDS: hydrOXYzine pamoate 25 MG CAPSULE PO (15:04)
--- NOTE | 2021-08-03 16:50 | PT.IIE ---
Current Diagnoses Other spondylosis with radiculopathy, cervical region (08/03/21) Spinal stenosis, cervical region (08/03/21) Surgery Performed Operation Date: 08/03/21 07:45 Actual Procedures p C5-6,C6-7 ACDF with anterior instrumentation - Maria De Jesus Sahni MD Medical History (Last Reviewed 08/03/21 @ 06:52 by Pati Hoffman RN) Chronic migraine Diabetes GERD (gastroesophageal reflux disease) Spinal stenosis in cervical region Physical Therapy Inpatient Evaluation/Re-Eval M1 PT/OT-IP Prior Functional Status Start: 08/03/21 17:56 Freq: NEEDED Status: Active Protocol: Document 08/03/21 16:50 AB (Rec: 08/03/21 18:06 AB [id number]) Medical Review Prior Functional Status Medical History Reviewed Yes Communication able to make needs known Mobility and Gait pt stated that she is indpendent with all mobilities and ambulation without AD. stated that her spouse or daugther occasionally assists her dressing needs depending on her pain level. Activities of Daily Living and IADL's per OT eval: Pt was IND in all ADLs but states that she sometimes had difficulty with doing her hair or fastening her bra. Social History Household Members spouse,children Living Arrangements House Number of Floors (Floors) One Floor Number of Stairs To Enter/Railing? 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 pt's mother will be staying with her to assist her. pt stated that her friend has a FWW that she can use if needed M2 PT-IP Current Condition Start: 08/03/21 17:56 Freq: NEEDED Status: Active Protocol: Document 08/03/21 16:50 AB (Rec: 08/03/21 18:06 AB [id number]) Physical Therapy Current Condition Current Condition Evaluation Date 08/03/21 Treatment Diagnosis C5-6 C6-7 ACDF; difficulty in walking Onset Date 08/03/21 M3 PT-IP Subjective Start: 08/03/21 17:56 Freq: NEEDED Status: Active Protocol: Document 08/03/21 16:50 AB (Rec: 08/03/21 18:06 AB [id number]) Subjective Physical Therapy Visit Type Type Initial Evaluation Visit Start Time 16:50 Visit Stop Time 17:05 Total Visit Minutes 15 Number of YARD HAND Visits 0 Physical Therapy Visit Comments Patient Comments stated that she was nauseated and just had emesis but feeling a little better and agreed to move with PT but does not want to do bed mobility Therapy Pain Assessment Pain When Pain Assessed At Rest Pain Present Pain Present Pain Reported Location Anterior Neck Intensity 8 Scale Used Numeric (0 - 10) Pain Management Techniques Distraction,Modification of Treatment M4 PT-IP Mobility and Gait Start: 08/03/21 17:56 Freq: NEEDED Status: Active Protocol: Document 08/03/21 16:50 AB (Rec: 08/03/21 18:06 [id number]) PT-Transfer Assessment Sit to and From Stand Sit to and from Stand Standby Assistance Equipment Transfer Assistive Device None,Gait Belt Orthotic/Prosthetic Devices or Brace: Yes Gait Assessment Gait Gait Assistance Required: Standby Assistance,Contact Guard Assist Distance (Feet) 20 Able to Maintain Weight Bearing Status Yes During Gait Assistive Devices Assistive Device Gait Belt Orthotic/Prosthetic Devices or Brace: Yes Gait Deviations General Gait Pattern Antalgic,Decreased Stride Length,Decreased Feet Clearance Factors Limiting Gait Function Factors Limiting Gait Function Decreased Activity Tolerance, Decreased Strength,Limited Range of Motion,Pain,Poor Balance,Poor Safety Awareness Comments Gait Comments pt sitting on EOB. stated that she is nauseated and just threw up but agreed to do mobility with PT but does not want to do bed mobility. completed sit to stand SBA. ambulated in room SBA to occasional CGA. presents with unsteady antalgic gait. pt sat on EOB. pt stated that if needed, her friend has a FWW that she can borrow. pt preferred to sit on EOB. call light placed next to pt. PT-Balance Assessment Sitting Balance and Reactions Static Sitting Balance Ability Good Dynamic Sitting Balance Ability Good Standing Balance and Reactions Static Standing Balance Ability Good Dynamic Standing Balance Ability Fair Device Used without AD M5 PT-IP Objective Assessments Start: 08/03/21 17:56 Freq: NEEDED Status: Active Protocol: Document 08/03/21 16:50 AB (Rec: 08/03/21 18:06 AB [id number]) Orientation Orientation/Cognition Level of Alertness Alert Orientation Name,Place,Situation Language Function Ability No Deficits Noted Safety Awareness Decreased Safety Awareness Memory Description No Deficits Noted Gross Range of Motion Lower Extremity ROM Assessment Within Functional Limits Strength Lower Extremity Strength Assessment Within Functional Limits Coordination Assessment Gross Coordination Gross Coordination WNL Muscle Tone Muscle Tone WNL Yes M6 PT-IP Treatment Start: 08/03/21 17:56 Freq: NEEDED Status: Active Protocol: Document 08/03/21 16:50 AB (Rec: 08/03/21 18:06 AB [id number]) Physical Therapy Treatment Education Education Provided Precautions,Weight Bearing Status,Post-Op Packet,Safety M7 PT-IP Assessment and Plan Start: 08/03/21 17:56 Freq: NEEDED Status: Active Protocol: Document 08/03/21 16:50 AB (Rec: 08/03/21 18:06 AB [id number]) PT Summary Assessment and Plan Potential Rehabilitation Potential Fair Status of Condition at Evaluation Evolving Summary Impairments Pain,ROM,Strength,Balance, Coordination,Sensation,Tone, Cognition,Bed Mobility, Transfers,Gait,Activity Tolerance Assessment Summary pt s/p ACDF and just had surgery this morning. pt with nausea and unable to tolerate much activity. pt able to ambulate without AD SBA to [facility] with unsteady gait. will need further assessment to determine if pt will be safe without or will be needing AD to go home. pt will have her mom to assist her at home. Goals Bed Mobility Goal Independent Transfer Goal Independent Gait Goal Independent Gait Distance 200 Other Goals up/down 4 steps B rails SBA Days to Meet Goals 5 Frequency of Treatment Frequency Of Treatment Twice a Day Treatment Plan Physical Therapy Treatment Plan Bed Mobility Training,Transfer Training,Gait Training, Therapeutic Exercise,Balance Retraining,Post Op Education, Discharge Planning,Hot or Cold Pack,Neuromuscular Re-ed, Coordination Retraining,Manual Therapy Precautions Cervical Spine Precautions Soft Collar for Comfort,No Heavy Lifting,Log Roll Recommendations To Nursing Amount of Assist Needed 1 Person Assist Discharge Recommendations PT Discharge Recommendations Home with Assistance Transportation Needs at Discharge Private Vehicle
[2021-08-03] MEDS: hydrOXYzine pamoate 25 MG CAPSULE 50 MG PO ×2 (17:12→23:09)
--- NOTE | 2021-08-03 17:17 | PC.NURSE ---
Postop Note Patient arrived to room 226 from PACU at 1200. Alert and oriented x3. Cervical soft collar in place, gauze dressing C/D/I. CMS intact to all extremities. Reports soreness and some swelling at neck but denies any swallowing/talking difficulty. 2L NC with SpO2 93-97%, desats to 86% on RA when sleeping. Initially pt reported pain well controlled but pain increased to 5-7/10 to neck, repositioning intermittently beneficial, oxycodone 5 mg, Vistaril 25 mg, and Dilaudid 0.2 mg x2 administered per emar. Pt reported nausea and received Zofran. Pt reported pain was not worse but not better after interventions and nausea was manageable as long as I don't drink water. Able to drink other fluids. MIKA Roy called and the above information relayed. Orders received for increased doses of both Vistaril and oxycodone - see emar. Pt up to bathroom SBA, steady on feet. Oriented to room/call light/bed controls on arrival, declines need to lock up any valuables. Cell phone at bedside and clothing in room closet. Call light within reach, using appropriately to make needs known.
[2021-08-03] MEDS: OXYCODONE IR 5 MG TABLET 10 MG PO ×2 (18:22→22:14)
[2021-08-03] MEDS: ACETAMINOPHEN 325 MG TABLET 650 MG PO (19:28)
[2021-08-03] MEDS: AMITRIPTYLINE 25 MG TABLET PO (22:13)
[2021-08-03] MEDS: DOCUSATE 100 MG CAPSULE PO (22:13)
[2021-08-03] MEDS: METFORMIN HCL 500 MG TABLET 1000 MG PO (22:13)
[2021-08-04 04:50] VITALS: BP 140/66; PULSE 80; RESP 16; TEMP 36.6; O2SAT 95
[2021-08-04] MEDS: OXYCODONE IR 5 MG TABLET 10 MG PO ×3 (04:51→13:41)
[2021-08-04] MEDS: HYDROMORPHONE 0.5 MG INJ 0.2 MG IV (05:43)
--- NOTE | 2021-08-04 06:19 | PC.NURSE ---
Shift Note-Patient vomitted 600ml light bile thin fluid x1, medicated with IV Zofran, nausea resolved. Has rated neck pain 6-8/10, medicated with 10mg oxycodone, 0.2mg IV Dilaudid, 50mg PO Vistaril, and Tylenol for headache. anterior dressing D/I with small shadowing, soft cervical collar in place. SBA to BR.
--- NOTE | 2021-08-04 07:19 | PM.DS.1 ---
History of Present Illness History of Present Illness Date Patient Seen: 08/04/21 Time Patient Seen: 09:41 Chief complaint: Cervical fusion *OPB* Narrative: Operative Date/Time/Diagnoses Date of procedure: 08/03/21 Time of procedure: 08:15 Pre-op diagnosis: 1. C5-6, C6-7 spinal stenosis 2. C5-6, C6-7 spondylosis with radiculopathy Post-op diagnosis: same Procedure & Clinicians Procedure: 1.? C5-6 C6-7 anterior cervical diskectomy and fusion 2.? C5-6 C6-7 anterior interbody cage placement 3.? C5-6 C6-7 anterior instrumentation with plate and screw placement in C5-C6 and C7 vertebrae 4.? Utilization of microsurgical technique and operating microscope Same procedure as scheduled: Yes Indications: Patient has been having chronic neck pain and worsening cervical radiculopathy. Patient failed multiple conservative management with worsening pain weakness and numbness in her upper extremity.? Patient has been having difficulty performing activity of daily living.? After discussing risks benefits of treatment options, patient elected proceed with surgery. Surgeon: [facility] De [facility] Customer Care Specialist: Julee Roy Click Yes if Unassisted: No Anesthesia Type: General Operative Notes Closure Type: primary Specimen(s): none sent Prosthetic devices, grafts, tissues, transplants, or devices: Globus Extend plate, PEEK cages Estimated Blood Loss (mL): 5 Blood products transfused: none Discharge Providers Provider Discharge Date: 08/04/21 Primary care physician: Giselle Hampton PA-C Consults: 08/03/21 11:50 Consult to Occupational Therapy Evaluate & Treat Comment: Physician Instructions: Evaluate and treat Consult to Physical Therapy Evaluate & Treat Comment: Physician Instructions: Evaluate and Treat Discharge provider: Julee Roy PA-C Summary Hospital Course Discharge Diagnosis: s/p ACDF Hospital Course: Ms Sanchez's hospital course was remarkable for nausea, vomiting, and poor pain control on the day of surgery. On POD# 1, she was feeling much better and was ready to discharge. She was eating, voiding, and ambulating without difficulty or assistance. She was evaluated by PT prior to discharge. Her pain was well-controlled with oral medication. Exam Vital Signs (past 8 hours): - 08/03/21 23:23 08/04/21 04:50 Temperature 97.4 F L 97.9 F Pulse Rate 77 80 Respiratory Rate 17 16 Blood Pressure 143/71 H 140/66 Pulse Oximetry 94 95 Oxygen Delivery Method Nasal Cannula Oxygen Flow Rate 0 Narrative Exam Narrative: 5/5 tin pourer strength, 5/5 strength in deltoids, biceps, triceps. Sensation to light touch intact throughout BUE. Dressing with scant serous drainage, otherwise dry and intact. Const General: cooperative and healthy appearing Orientation: alert, awake and oriented x3 Objective Labs Labs: Laboratory Results - last 24 hr 08/03/21 08/03/21 06:46 12:20 Nasal Screen MRSA (PCR) Negative for mrsa SARS-CoV-2 (PCR) Negative [facility] Medical History Chronic migraine Diabetes GERD (gastroesophageal reflux disease) Spinal stenosis in cervical region Surgical History (Updated 08/04/21 @ 09:35 by Julee Roy PA-C) Hx of arthroscopy of right knee (~1993) Hx of shoulder surgery (1999) Hx of thumb surgery (2009) Hx of tonsillectomy Family History Mother Gallstone Grandmother Gallstone Diabetes mellitus Stroke Grandfather Heart disease Cancer Social History household members: spouse, family and children Smoking Status: Never smoker alcohol intake: never Discharge Assessment & Plan Assessment and Plan Assessment: 1) POD# 1 s/p C5-6, C6-7 anterior cervical diskectomy and fusion 2) Diabetes 3) Obesity Plan of Treatment: Discharge home. Discharge Plan Discharge Plan Patient Disposition: Home Discharge orders & Medications Discharge Orders: Discharge (Order); Ordered 08/04/21 Ordered By: Julee Roy Prescriptions: New docusate sodium 100 mg Capsule 100 mg PO BID PRN (Reason: constipation) Qty: 60 2RF hydroxyzine pamoate 25 mg Capsule 50 mg PO Q4HR PRN (Reason: muscle spasm) Qty: 120 1RF oxycodone 5 mg Tablet 10 mg PO Q4HR PRN (Reason: pain, severe) Qty: 60 0RF Continued amitriptyline 25 mg Tablet 25 mg PO BEDTIME 0RF oxycodone 5 mg Tablet 5 mg PO BID 0RF Jardiance 10 mg Tablet 10 mg PO DAILY 0RF acetaminophen 500 mg Capsule 1,000 mg PO QD-BID PRN (Reason: Pain) 0RF metformin 1,000 mg tablet 1,000 mg PO BID 0RF liraglutide [Victoza 2-Roberto Carlos] 0.6 mg/0.1 mL (18 mg/3 mL) pen injector 1.8 mg SUBCUT DAILY 0RF Discontinued ibuprofen 200 mg Tablet 400 mg PO DAILY 0RF Follow up/Referrals: Giselle Hampton PA-C [Primary Care Provider] - Maria De Jesus Sahni MD [Physician] - As previously scheduled (Follow up with Dr Sahni on 08/16/2021 @ 1:20 pm at [facility] in [place].) Diet/Activity/Treatments Diet: Diet as Tolerated Diet comment: Start with soft, moist foods as you may have a sore throat. Activity: No lifting more than 20 pounds. No driving for 1 week or while taking hydroxizine or more oxycodone than you normally take. Skin/Wound/Dressing Care Dressing: May shower; leave dressing in place until follow up appointment. May remove and replace dressing if it becomes wet inside. DO NOT remove steri strips. Wear soft collar when sitting up or standing. You may take it off to eat. You do not have to sleep with it on, but many people feel like they have less pain if they do sleep with it in place. Visit Report/Discharge Packet Instructions: DI for Anterior Cervical Discectomy and Fusion Stand Alone Forms: Surgery Discharge Discharge Data Primary Care Provider: Giselle Hampton Attending Provider: Maria De Jesus Sahni Quality VTE Deep Vein Thrombosis/Pulmonary Embolism Present on Admission: No
[2021-08-04 08:00] VITALS: BP 139/63; PULSE 84; RESP 16; TEMP 37.2; O2SAT 97
[2021-08-04] MEDS: DOCUSATE 100 MG CAPSULE PO (08:08)
[2021-08-04] MEDS: METFORMIN HCL 500 MG TABLET 1000 MG PO (08:08)
[2021-08-04] MEDS: hydrOXYzine pamoate 25 MG CAPSULE 50 MG PO ×2 (08:09→13:40)
--- NOTE | 2021-08-04 09:45 | CM.DANOTE ---
Discharge Assmt note: Patient is 40yo female admitted by Ortho Dr. Sahni post surgical procedure (cervical fusion). Patient resides at home with spouse and will have mother to assist with her post surgery recovery as well as caring for pt's minor children. Patient is fully independent with ADLs, has no assistive devices. Patient's family will provide transportation home via POV at time of discharge. Pt reports no discharge planning needs. PCP: Giselle Hampton INS: Select Plan: patient is anticipated to discharge home. Care management will continue to follow for discharge planning needs. Benoit WAGNER Discharge Planning/Care Management CM Discharge Assessment Start: 08/04/21 09:42 Freq: Status: Active Protocol: Document 08/04/21 09:42 KOBY (Rec: 08/04/21 09:44 KOBY [id number]) Discharge Planning Assessment Assigned Sales Solutions Representative Benoit WAGNER DPOA/Assigned Designee Name spouse New Contact Information [phone] Advance Directives? No: Working on currently History Provided By Patient,Medical Record Has Patient been admitted in last 30 No days? Prior Living Arrangements House Household Members spouse,family,children Comment mother who will assist with care post surgery Type of transporation used prior to Drives own vehicle admit Independent with ADL's Yes Is patient alert and oriented? Yes Caregiver for Another Yes: minor children Barriers to Discharge No Discharge Plan Home Transportation Arrangement family member Referrals Initiated None needed Whiteboard Updated in Patient Room with Yes name and ext. # of Sales Solutions Representative Review Status In Process Next Review Type Continued Stay Review Pre-Anesthesia Assessment Start: 06/07/21 09:59 Freq: Status: Complete Protocol: Document 06/07/21 09:59 CAB (Rec: 06/07/21 10:31 [facility] [id number]) Pre-Anesthesia Assessment Patient Information Reviewed Via Phone Assessment Assessment Completed With Patient Diagnostic Results BMP/CMP,CBC,EKG Comment Labs/ECG @ [facility] 05/26/21, COVID screen-needs to schedule Primary Care Provider Giselle Hampton Seen Specialist in Last 12 Months Yes Specialist Seen Orthopedist Primary Language Finnish Hardboard Press Operator Required No Height 165.1 cm Weight 97.522 kg Body Mass Index (BMI) 35.7 Hearing Ability Normal Visual Assist Glasses Dentition Type Teeth, Natural Present,Teeth, Missing Barriers to Learning None Hx Anesthesia Reactions Yes: Morphine-severe hallucinations, vomiting Hx Family Anesthesia Reaction No Hx Malignant Hyperthermia No Hx Blood Transfusions No Anesthesia Review Requested No Child Welfare Assistant No alcohol intake never Smoking Status Never smoker Substance Use Type does not use Pain Present Pain Reported Musculoskeletal Symptoms Back Pain,Limited Range of Motion,Neck Pain History of Falling (Recent or History of No ) Patient is completely paralyzed or No completely immobile Mental Status Oriented to own ability Is patient on oxygen? No Does patient have OLSON/SOB No Hx Sleep Apnea No Currently Taking a Beta Barber No Can You Climb a Flight of Stairs Without Yes SOB Hx Chest Pain No Hx SOB No Hx Syncope or Dizziness No Anti-Coagulant Therapy No Has a Horticulture Supervisor No Cardiac Testing No Hx Pacemaker/ICD No Pacemaker Rep Required? No Cardiac Clearance Received Not Applicable Diet Type At Home Low Carb dysphagia No Gastrointestinal Symptoms Constipation,Diarrhea Urinary Catheter Present No Hx Urinary Self Catheterization No Diabetes Yes: Pt checks blood sugars 3x /times day HgbA1C 8.3 Date 05/26/21 Patient No Lactating No Hx Drug Resistant Organism No Presence of External or Internal Medical No Devices Have you had any close contact with No someone diagnosed with COVID-19? Received a COVID vaccine? Yes: +Booster Received all doses? Yes Marital Status Lives With spouse,children Prior Living Arrangements House Number of Floors (Floors) One Floor Support System Spouse Does the Patient Have Assistance After Yes Surgery Patient Discharge Plan Description Return Home Comment Pt not advised on length of stay per surgeon Feels Safe in Current Environment Yes Been Physically Hurt or Threatened By a No Person in Current Environment Do you have thoughts of harming yourself None or others? Are you currently considering suicide? No Do you have a plan to hurt yourself or No Plan others? Do You Have Any Spiritual Beliefs That No May Affect Your HC Choices? Do You Have Any Cultural Practices That No May Affect Your HC Choices? Comment Bhavesh Who Can We Speak to About Patient's Care Family, friends Identifying Code for Release of Patient Declines to issue Information Health Care Proxy/Next of Kin New ()Yulia (mom) Health Care Proxy Phone Number New: [phone] Yulia: [phone] Emergency Contact Name New ()Yulia (mom) Emergency Contact Phone Number New: [phone] Yulia: [phone] Advance Directives? No: Working on currently Power of Assistant Press Operator Yes Power of Assistant Press Operator Name New () Power of Assistant Press Operator PAC Instructions Diabetes instructions, Medications to take/avoid, Nasal antibiotic,No ETOH/ petroleum product on skin DOS, NPO,Post-op transportation,Pre -surgical wash,Sturdy shoes/ comfortable clothes,Do not bring valuables and remove jewelry
--- NOTE | 2021-08-04 10:07 | PC.NURSE ---
Pt states that medication (oxycodone) is not lasting 4 hours and would prefer rx Q3H PRN. Spoke with MIKA Roy regarding pt concerns about pain management/pain med regimen and patient's request to decrease interval to q3h prn. No new orders received at this time.
--- NOTE | 2021-08-04 10:33 | OT.IP.TRT ---
Current Diagnoses Other spondylosis with radiculopathy, cervical region (08/03/21) Spinal stenosis, cervical region (08/03/21) Arthrodesis status (08/03/21) Surgery Performed Operation Date: 08/03/21 07:45 Actual Procedures p C5-6,C6-7 ACDF with anterior instrumentation - Maria De Jesus Sahni MD Occupational Therapy Treatment Note M2 OT-IP Current Condition Start: 08/03/21 15:53 Freq: Status: Active Protocol: Document 08/03/21 15:57 CGR (Rec: 08/03/21 16:14 CGR [id number]) Occupational Therapy Current Condition Current Condition Evaluation Date 08/03/21 Treatment Diagnosis c5-7 ACDF Diagnosis Onset Date 08/03/21 Post Operative Precautions Cervical Spine Precautions Soft Collar for Comfort,No Heavy Lifting,Log Roll M3 OT- IP Subjective and Pain Start: 08/03/21 15:53 Freq: Status: Active Protocol: Document 08/04/21 15:41 CGR (Rec: 08/04/21 15:46 CGR [id number]) OT- Subjective Occupational Therapy Visit Type Type Progress Note Visit Start Time 10:22 Visit Stop Time 10:33 Total Visit Minutes 11 OT Pain Assessment Pain When Pain Assessed At Rest Pain Present Pain Present Pain Reported Location Anterior Neck Intensity 3 Scale Used Numeric (0 - 10) Management Techniques Distraction,Modification of Treatment,Re-positioning, Timing of Activity with Medications M4 OT- IP ADL's Start: 08/03/21 15:53 Freq: Status: Active Protocol: Document 08/04/21 15:41 CGR (Rec: 08/04/21 15:46 CGR [id number]) OT [id number] Comments OT Self-Feeding Comments Not meal time OT ADL-Grooming General Evaluation Grooming Ability Independent Comments OT Grooming Comments standing at sink OT ADL-Dressing General Eval Lower Body Dressing Ability Independent Areas Needing Assistance Socks Comments OT Dressing Comments educated on performing LB dressing seated OT ADL-Toileting General Evaluation Toileting Ability Independent OT ADL-Bathing Comments OT Bathing Comments pt declined M5 OT- IP IADL's Start: 08/03/21 15:53 Freq: Status: Active Protocol: Document 08/03/21 15:57 CGR (Rec: 08/03/21 16:14 CGR [id number]) OT-Instrumental Activities of Daily Living Deficits IADL Deficits Identified No Deficits Home Safety Awareness Awareness of Need for Assistance at Home Good Awareness Ability to Problem Solve Emergency Able to Problem Solve Situations Medication Management Medication Management No Deficits Identified Money Management Money Management No Deficits Identified Meal Preparation Meal Preparation Caregiver Provides Assist Sports Information Director Sports Information Director Caregiver Provides Assist Driving Driving Caregiver Provides Assist M6 OT- IP Functional Cognition Start: 08/03/21 15:53 Freq: Status: Active Protocol: Document 08/03/21 15:57 CGR (Rec: 08/03/21 16:14 CGR [id number]) Cognitive Factors Limiting Selfcare Function Cognitive Ability Level of Alertness Alert Patient Orientation Name,Age,Birthday,Month,Date, Year,Day of Week,Place, Situation Attention Span Ability Capable of Focused Attention, Capable of Sustained Attention Ability to Follow Commands Able to Follow Multi-Step Commands OT- Vision and Hearing OT- Hearing Assessment OT- Hearing Assessment WFL OT- Vision Assessment Visual Acuity Glasses All The Time Visual Attentiveness WFL Occular Pursuits WFL Visual Convergence WFL M7 OT- IP Mobility and Balance Start: 08/03/21 15:53 Freq: Status: Active Protocol: Document 08/04/21 15:41 CGR (Rec: 08/04/21 15:46 CGR [id number]) OT- Bed Mobility Assessment Rolling Type of Rolling Log Rolling,Roll to Left Level of Assistance Independent Supine to Sit Supine to Sit Assist Independent Scooting Scooting to Edge of Bed Independent OT-Transfer Assessment Sit to and From Stand Sit to and from Stand Independent Transfers Transfer Ability Independent Technique Transfer Destination Bed,Chair Transfer Technique Stand Step Pivot Devices Transfer Assistive Devices Gait Belt OT- Balance Assessment Sitting Balance and Reactions Static Sitting Balance Ability Normal Dynamic Sitting Balance Ability Normal M8 OT- IP Objective Assessments Start: 08/03/21 15:53 Freq: Status: Active Protocol: Document 08/03/21 15:57 CGR (Rec: 08/03/21 16:14 CGR [id number]) OT Gross Range of Motion Upper Extremity Range of Motion Assessment Within Functional Limits OT Strength Comments Strength Comments shlds not tested d/t pain, arms 4/5, r hand 3+/5, L hand 4/5 OT- Coordination Assessment Upper Extremity Finger to Nose Test Within Functional Limits Finger Tapping Test Within Functional Limits Comments Coordination Comments Pt states more focus needed for the R hand to perform tasks OT-Muscle Tone Assessment Muscle Tone WNL Yes OT Sensation Assessment Edema Edema Absent M9 OT- IP Assessment and Plan Start: 08/03/21 15:53 Freq: Status: Active Protocol: Document 08/04/21 15:41 CGR (Rec: 08/04/21 15:46 CGR [id number]) OT Summary Assessment and Plan Potential Rehabilitation Potential Excellent Analytic Complexity at Evaluation Moderate Summary OT Impairments Pain,Strength,Balance, Functional Mobility,Grooming, Dressing,Toileting,Bathing, Toilet Transfers,Shower Transfers,Activity Tolerance Progress Towards Goals Slow Progress due to Pain,Slow Progress due to Medical Issues Assessment Summary Pt presents as a moderate complexity evaluation s/p admit for c5-7 ACDF. Pt has progressed close to her baseline and is moving around the room with IND at this time . Pt educated on LB dressing, home safety, and cervical precautions. No further OT needs. Goals Grooming Goal Independent Dressing Goal Independent Toileting Goal Independent Bathing Goal Independent Toilet Transfer Goal Independent Shower Transfer Goal Independent Days to Meet Goals 3 Frequency of Treatment Frequency Of Treatment Once a Day Treatment Plan OT Treatment Plan ADL Training,Functional Mobility,Patient/Family Education,Discharge Planning Other Treatment Recommendations and Next LB dressing, cervical Treatment Focus precautions Discharge Recommendations OT Discharge Recommendations Home with Assistance Transportation Needs at Discharge Private Vehicle
--- NOTE | 2021-08-04 11:02 | PT.IPTN ---
Current Diagnoses Other spondylosis with radiculopathy, cervical region (08/03/21) Spinal stenosis, cervical region (08/03/21) Arthrodesis status (08/03/21) Surgery Performed Operation Date: 08/03/21 07:45 Actual Procedures p C5-6,C6-7 ACDF with anterior instrumentation - Maria De Jesus Sahni MD Physical Therapy Treatment Note M2 PT-IP Current Condition Start: 08/03/21 17:56 Freq: NEEDED Status: Active Protocol: Document 08/03/21 16:50 AB (Rec: 08/03/21 18:06 AB [id number]) Physical Therapy Current Condition Current Condition Evaluation Date 08/03/21 Treatment Diagnosis C5-6 C6-7 ACDF; difficulty in walking Onset Date 08/03/21 M3 PT-IP Subjective Start: 08/03/21 17:56 Freq: NEEDED Status: Active Protocol: Document 08/04/21 10:52 KS (Rec: 08/04/21 13:05 KS [id number]) Subjective Physical Therapy Visit Type Type Treatment Note Visit Start Time 10:52 Visit Stop Time 11:02 Total Visit Minutes 10 Number of NAME PLATE STAMPER Visits 1 Physical Therapy Visit Comments Patient Comments Pt agreeable to working w/ PT. M4 PT-IP Mobility and Gait Start: 08/03/21 17:56 Freq: NEEDED Status: Active Protocol: Document 08/04/21 10:52 KS (Rec: 08/04/21 13:05 KS [id number]) PT-Transfer Assessment Sit to and From Stand Sit to and from Stand Standby Assistance Equipment Transfer Assistive Device None,Gait Belt Orthotic/Prosthetic Devices or Brace: Yes Transfers Transfer Destination Chair Transfer Technique Pt ambulated w/o AD Transfer Ability Level of Assist Standby Assistance Gait Assessment Gait Gait Assistance Required: Standby Assistance Distance (Feet) 400 Able to Maintain Weight Bearing Status Yes During Gait Assistive Devices Assistive Device Gait Belt Orthotic/Prosthetic Devices or Brace: Yes Gait Deviations General Gait Pattern Within Normal Limits Factors Limiting Gait Function Factors Limiting Gait Function Pain Comments Gait Comments Pt in chair upon arrival and agreebale to ambulation and stair training. SBA for sit<> stand and ~200 ft ambulation to practice stairs. Pt gait within normal limits. She then ascended/descended 6 steps total w/ L hand rail step over step pattern SBA. She ambulated additional 200 ft back to room and got into chair. Pt left in chair w/ all needs in reach. Stair Climbing Assessment Evaluation Level of Assist On Stairs Standby Assistance Devices Stair Climbing Assistive Devices Left Railing Technique/Endurance Stair Climbing Direction Ascend and Descend Stair Climbing Technique Step Over Step Number of Steps Climbed 3 Stair Climbing Set # Repetitions (reps) 2 Comments Stair Climbing Comments Pt ascended/descended 6 total steps w/ L rail step over step pattern SBA. Pt feels safe to complete stairs leading into her home. PT-Balance Assessment Sitting Balance and Reactions Static Sitting Balance Ability Good Dynamic Sitting Balance Ability Good Standing Balance and Reactions Static Standing Balance Ability Good Dynamic Standing Balance Ability Good Device Used without AD M5 PT-IP Objective Assessments Start: 08/03/21 17:56 Freq: NEEDED Status: Active Protocol: Document 08/03/21 16:50 AB (Rec: 08/03/21 18:06 AB [id number]) Orientation Orientation/Cognition Level of Alertness Alert Orientation Name,Place,Situation Language Function Ability No Deficits Noted Safety Awareness Decreased Safety Awareness Memory Description No Deficits Noted Gross Range of Motion Lower Extremity ROM Assessment Within Functional Limits Strength Lower Extremity Strength Assessment Within Functional Limits Coordination Assessment Gross Coordination Gross Coordination WNL Muscle Tone Muscle Tone WNL Yes M6 PT-IP Treatment Start: 08/03/21 17:56 Freq: NEEDED Status: Active Protocol: Document 08/04/21 10:52 KS (Rec: 08/04/21 13:05 KS [id number]) Physical Therapy Treatment Education Education Provided Precautions,Weight Bearing Status,Post-Op Packet,Safety M7 PT-IP Assessment and Plan Start: 08/03/21 17:56 Freq: NEEDED Status: Active Protocol: Document 08/04/21 10:52 KS (Rec: 08/04/21 13:05 KS [id number]) PT Summary Assessment and Plan Potential Rehabilitation Potential Excellent Status of Condition at Evaluation Evolving Summary Impairments Pain,ROM,Strength,Balance, Coordination,Sensation,Tone, Cognition,Bed Mobility, Transfers,Gait,Activity Tolerance Assessment Summary Pt w/ great improvement w/ mobility and activity tolerance today. SBA for all mobility including ambulation and stairs. Able to ambulate 400 ft w/o AD no LOB or unsteadiness and ascend/ descend 6 total steps w/ L rail step over step problem. Pt will benefit from outpatient rehab when appropriate. Goals Bed Mobility Goal Independent Transfer Goal Independent Gait Goal Independent Gait Distance 200 Other Goals up/down 4 steps B rails SBA Days to Meet Goals 5 Frequency of Treatment Frequency Of Treatment Twice a Day Treatment Plan Physical Therapy Treatment Plan Bed Mobility Training,Transfer Training,Gait Training, Therapeutic Exercise,Balance Retraining,Post Op Education, Discharge Planning,Hot or Cold Pack,Neuromuscular Re-ed, Coordination Retraining,Manual Therapy Precautions Cervical Spine Precautions Soft Collar for Comfort,No Heavy Lifting,Log Roll Recommendations To Nursing Amount of Assist Needed 1 Person Assist Discharge Recommendations PT Discharge Recommendations Home with Assistance Transportation Needs at Discharge Private Vehicle
[2021-08-04 12:00] VITALS: BP 130/60; PULSE 101; RESP 18; TEMP 36.9; O2SAT 98
[2021-08-04] MEDS: ACETAMINOPHEN 325 MG TABLET 650 MG PO (13:10)
--- NOTE | 2021-08-04 14:42 | PC.NURSE ---
Reviewed dc packet, educational materials, medications (next dose due, side effects, monitoring parameters), f/u appt, s/s of post op wound infection, when to seek emergency care, when to notify provider, etc. Pt verbalizes understanding of dc teaching. Pt dressed herself. All belongings were gathered and sent with pt upon dc. CLIENT SERVICES ACCOUNT MANAGER escorted pt to exit via w/c.
== END 2021-08-04 14:20 | disposition home or self-care (01) ==
LOC: OR 05:55 → AC 05:57 → ICU 10:55
PROVIDERS: PCP Physician Assistant; Referring Provider Orthopaedic Surgery Orthopaedic Surgery of the Spine; Visit Provider Orthopaedic Surgery Orthopaedic Surgery of the Spine
PROC: (CPT 22551; principal; 2021-08-03 07:45)
DX: M48.02 Spinal stenosis, cervical region (principal); M47.22 Other spondylosis with radiculopathy, cervical region; E11.9 Type 2 diabetes mellitus without complications; Z79.84 Long term (current) use of oral hypoglycemic drugs
CPT/HCPCS: 22551; 22552; 22853 ×2; 72040; 76000; 81025; 82962; 87635; 87797; 97116; 97162; 97166; 97530; 97535; C9803; C1713; J0171; J0690; J1100; J1170; J2405; J2704; J3010

== ENCOUNTER 2021-08-12 17:25 | Emergency (ER) | payer OTHER, SELFPAY ==
[2021-08-03 12:11] VITALS: BMI 35.7
[2021-08-12 17:25] VITALS: BP 151/89; PULSE 95; RESP 18; TEMP 36.9; O2SAT 98; BMI 35.4
[2021-08-12] MEDS: KETOROLAC 30 MG/ML VIAL 15 MG IV (18:19)
[2021-08-12] MEDS: DEXAMETHASONE 10 MG/ML VIAL IV (18:20)
--- NOTE | 2021-08-12 18:50 | ED.NECK ---
HPI - Neck Pain/Injury <Kendall Lyons PA-C - Last Filed: 08/12/21 19:59> General Chief Complaint: Neck Pain/Injury Stated Complaint: SPINAL FUSION SURGERY 08/03 THROAT FEELS TIGHT Time Seen by Provider: 08/12/21 17:30 Mode of arrival: Ambulatory History of Present Illness HPI Narrative: Patient is a 40-year-old female presenting to the emergency department today for evaluation of dysphagia and throat swelling. Patient explains that she had a cervical spine fusion performed on 08/03/2021. She explains that she has experienced difficulty swallowing and a sensation of throat swelling following the surgery, however she states that last night the throat ?tightness? worsened. She explains that she has a postoperative appointment this upcoming Sunday and she contacted the office of her surgeon and they urged her to come to the emergency department for further evaluation. Patient states that she feels that she is having a difficult time taking deep breath and notes that swallowing has become difficult due to the pain. She denies fever, chills, chest pain, cough, shortness of breath, nausea, vomiting, diarrhea, constipation, abdominal pain, dysuria, hematuria, or any other concerning symptoms. No further concerns were voiced at this time. Related Data Home Medications Medication Instructions Recorded Confirmed liraglutide 0.6 mg/0.1 mL (18 mg/3 1.8 mg SUBCUT DAILY ml 03/18/18 08/03/21 mL) subcutaneous pen injector (Victoza 2-Roberto Carlos) metformin 1,000 mg tablet 1,000 mg PO BID 03/18/18 08/03/21 acetaminophen 500 mg capsule 1,000 mg PO QD-BID PRN 06/07/21 08/03/21 amitriptyline 25 mg tablet 25 mg PO BEDTIME 06/07/21 08/03/21 empagliflozin 10 mg tablet 10 mg PO DAILY 06/07/21 08/03/21 (Jardiance) oxycodone 5 mg tablet 5 mg PO BID 06/07/21 08/03/21 Previous Rx's Medication Instructions Recorded docusate sodium 100 mg capsule 100 mg PO BID PRN #60 cap 08/04/21 hydroxyzine pamoate 25 mg capsule 50 mg PO Q4HR PRN #120 cap 08/04/21 oxycodone 5 mg tablet 10 mg PO Q4HR PRN #60 tab 08/04/21 prednisone 20 mg tablet 40 mg PO DAILY #10 tab 08/12/21 Allergies Allergy/AdvReac Type Severity Reaction Status Date / Time doxycycline Allergy Severe Sun Verified 08/03/21 06:52 poisoning, my skin blew up like a jellyfish eletriptan Allergy Severe Rash/Anxiet Verified 08/03/21 06:52 y hydrocodone [From Vicodin] AdvReac Severe Headaches, Verified 08/03/21 06:52 vomiting morphine AdvReac Severe Vomiting, Verified 08/03/21 06:52 hallucinations Review of Systems <Kendall Lyons PA-C - Last Filed: 08/12/21 19:59> Constitutional Constitutional: Denies chills, Denies fatigue, Denies fever(s), Denies frequent falls, Denies lethargy and Denies weakness Eyes Eyes: Denies loss of vision ENT Ears, Nose, Mouth, and Throat: Denies change in voice, Reports dysphagia, Denies dizziness, Reports neck pain, Denies sore throat, Reports throat swelling, Denies tongue swelling and Reports other (Odynophagia) Cardiovascular Cardiovascular: Denies chest pain, Denies irregular heart rhythm, Denies lightheadedness, Denies palpitations, Denies dyspnea, Denies dyspnea on exertion and Denies orthopnea Respiratory Respiratory: Denies cough, Denies dyspnea, Denies dyspnea on exertion and Denies wheezing Gastrointestinal Gastrointestinal: Denies abdominal pain, Denies change in bowel habits, Reports dysphagia, Denies diarrhea, Denies nausea and Denies vomiting Genitourinary Genitourinary: Denies hematuria, Denies flank pain, Denies urinary incontinence and Denies urinary urgency Musculoskeletal Musculoskeletal: Denies back pain, Denies muscle weakness, Reports neck pain, Denies numbness and Denies tingling Integumentary/Breasts Skin/Breast: Denies pruritus, Denies erythema, Denies rash and Denies wounds Neurologic Neurologic: Denies behavioral changes, Denies confusion, Denies dizziness, Denies frequent falls, Denies loss of vision, Denies numbness, Denies tingling and Denies weakness Psychiatric Psychiatric: Denies behavioral changes and Denies confusion Endocrine Endocrine: Denies fatigue and Denies palpitations Allergic/Immunologic Allergic/Immunologic: Reports throat swelling, Denies tongue swelling and Denies wheezing Patient History <Kendall Lyons PA-C - Last Filed: 08/12/21 19:59> Medical History Chronic migraine Diabetes GERD (gastroesophageal reflux disease) Spinal stenosis in cervical region Surgical History Hx of arthroscopy of right knee (~1993) Hx of shoulder surgery (1999) Hx of thumb surgery (2009) Hx of tonsillectomy Family History Mother Gallstone Grandmother Gallstone Diabetes mellitus Stroke Grandfather Heart disease Cancer Social History household members: spouse, family and children Smoking Status: Never smoker alcohol intake: never Smoking Status: Never smoker Substance Use Type: does not use Exam <Kendall Lyons PA-C - Last Filed: 08/12/21 19:59> Narrative Exam Narrative: GENERAL: 40 year old patient appears stated age. Well-developed patient, in no acute distress. HEAD: Atraumatic. Normocephalic. EYES: Pupils equal round and reactive. Extraocular motions intact. No scleral icterus. No injection or drainage. ENT: Nose without bleeding, purulent drainage. Throat without erythema, tonsillar hypertrophy or exudate. Airway patent. No significant pharyngeal swelling appreciated. No significant erythema appreciated. NECK: Trachea midline. Soft cervical collar in place. Surgical incision free active discharge or significant swelling. CARDIOVASCULAR: Regular rate and rhythm without murmurs, gallops, or rubs. RESPIRATORY: Clear to auscultation. Breath sounds equal bilaterally. No wheezes, rales, or rhonchi. No increased work of breathing, patient talking in complete sentences and is in no acute distress. GASTROINTESTINAL: Abdomen soft, non-tender, nondistended. EXTREMITIES: No edema or joint tenderness. BACK: Nontender without deformity or crepitance. No flank tenderness. NEURO: AOx3. SKIN: No rash or erythema of visible areas Initial Vital Signs Initial Vital Signs: Vital Signs Temperature 98.5 F 08/12/21 17:25 Pulse Rate 95 H 08/12/21 17:25 Respiratory Rate 18 08/12/21 17:25 Blood Pressure 151/89 H 08/12/21 17:25 Pulse Oximetry 98 08/12/21 17:25 <Kira Vargas DO - Last Filed: 08/13/21 01:31> Initial Vital Signs Initial Vital Signs: Vital Signs Temperature 98.5 F 08/12/21 17:25 Pulse Rate 95 H 08/12/21 17:25 Respiratory Rate 18 08/12/21 17:25 Blood Pressure 151/89 H 08/12/21 17:25 Pulse Oximetry 98 08/12/21 17:25 Course <Kendall Lyons PA-C - Last Filed: 08/12/21 19:59> Course Course Narrative: 10 mg of IV Decadron and 15 mg of IV Toradol administered. CTA chest and CT soft tissue neck obtained. Cbc and CMP ordered. EKG 12 lead ordered. Orders Ordered: ED Orders 08/12/21 18:25 CBC Auto Diff [Complete Blood Count AUTO DIFF] Stat CMP [Comprehensive Metabolic Panel] Stat CRP [C-Reactive Protein Quant] Stat ESR [Erythrocyte Sedimentation Rate] Stat 08/12/21 19:18 [address] angio chest Stat CT soft tissue neck w con Stat EKG-12 Lead Stat 08/12/21 22:12 Blood Culture Stat Lactate (Lactic Acid) Stat Discontinued Medications Dexamethasone (Dexamethasone 10 Mg/Ml Vial) 10 mg IV NOW ONE Stop: 08/12/21 18:05 Last Admin: 08/12/21 18:20 Dose: 10 mg Documented by: LORI Ketorolac Tromethamine (Ketorolac 30 Mg/Ml Vial) 15 mg IV NOW ONE Stop: 08/12/21 18:05 Last Admin: 08/12/21 18:19 Dose: 15 mg Documented by: LORI Vital Signs Vital signs: Vital Signs - 8 hr 08/12/21 17:25 08/12/21 23:02 Temperature 98.5 F Pulse Rate 95 H 69 Respiratory Rate 18 16 Blood Pressure 151/89 H 144/77 H Pulse Oximetry 98 98 <Kira Vargas DO - Last Filed: 08/13/21 01:31> Orders Ordered: ED Orders 08/12/21 18:25 CBC Auto Diff [Complete Blood Count AUTO DIFF] Stat CMP [Comprehensive Metabolic Panel] Stat CRP [C-Reactive Protein Quant] Stat ESR [Erythrocyte Sedimentation Rate] Stat 08/12/21 19:18 CT angio chest Stat CT soft tissue neck w con Stat EKG-12 Lead Stat 08/12/21 22:12 Blood Culture Stat Lactate (Lactic Acid) Stat Discontinued Medications Dexamethasone (Dexamethasone 10 Mg/Ml Vial) 10 mg IV NOW ONE Stop: 08/12/21 18:05 Last Admin: 08/12/21 18:20 Dose: 10 mg Documented by: LORI Ketorolac Tromethamine (Ketorolac 30 Mg/Ml Vial) 15 mg IV NOW ONE Stop: 08/12/21 18:05 Last Admin: 08/12/21 18:19 Dose: 15 mg Documented by: LORI Vital Signs Vital signs: Vital Signs - 8 hr 08/12/21 17:25 08/12/21 23:02 Temperature 98.5 F Pulse Rate 95 H 69 Respiratory Rate 18 16 Blood Pressure 151/89 H 144/77 H Pulse Oximetry 98 98 MDM - Neck Pain/Injury <Kendall Lyons PA-C - Last Filed: 08/12/21 19:59> Lab Data Result diagrams: 08/12/21 18:25 08/12/21 18:25 Labs: Lab Results 08/12/21 08/12/21 08/12/21 Range/Units 18:25 18:25 18:25 WBC 13.1 H (4.5-11.0) X10^3/uL RBC 4.62 (4.0-5.2) X10^6/uL Hgb 13.7 (12.0-16.0) g/dL Hct 40.2 (36-46) % MCV 87.2 (80-100) fL MCH 29.7 (26-34) PG MCHC 34.1 (30-36) % RDW 13.7 (11.6-14.8) % Plt Count 524 H (150-400) X10^3/uL Neut % (Auto) 72.7 (50-75) % Lymph % (Auto) 21.7 L (25-40) % Mcminn % (Auto) 3.8 (3-14) % Eos % (Auto) 1.3 L (2-4) % Baso % (Auto) 0.5 (0-2) % Neut # (Auto) 9500 H (7150-9503) /uL Lymph # (Auto) 2800 (2693-5254) /uL Mcminn # (Auto) 500 (0-900) /uL Eos # (Auto) 200 (0-450) /uL Baso # (Auto) 100 (0-100) /uL ESR 59 H (0-20) MM/HR Sodium 138 (137-145) mmol/L Potassium 4.1 (3.4-5.1) mmol/L Chloride 105 (98-107) mmol/L Carbon Dioxide 20 L (22-32) mmol/L BUN 9 (7-17) mg/dL Creatinine 0.37 L (0.52-1.04) mg/dL Estimated GFR > 60.0 (>60) mL/min BUN/Creatinine Ratio 24.3 H (6-22) Glucose 179 H (70-100) mg/dL Lactate (0.7-2.1) mmol/L Calcium 9.4 (8.4-10.2) mg/dL Total Bilirubin 0.5 (0.2-1.3) mg/dL AST 26 (14-36) IU/L ALT 15 (<35) IU/L Alkaline Phosphatase 114 (38-126) U/L C-Reactive Protein (<1.0) mg/dL Total Protein 8.1 (6.3-8.2) g/dL Albumin 4.4 (3.5-5.0) g/dL Globulin 3.7 (1.7-4.1) g/dL Albumin/Globulin Ratio 1.2 (1.0-2.8) 08/12/21 08/12/21 Range/Units 18:25 22:12 WBC (4.5-11.0) X10^3/uL RBC (4.0-5.2) X10^6/uL Hgb (12.0-16.0) g/dL Hct (36-46) % MCV (80-100) fL MCH (26-34) PG MCHC (30-36) % RDW (11.6-14.8) % Plt Count (150-400) X10^3/uL Neut % (Auto) (50-75) % Lymph % (Auto) (25-40) % Mcminn % (Auto) (3-14) % Eos % (Auto) (2-4) % Baso % (Auto) (0-2) % Neut # (Auto) (2014-4811) /uL Lymph # (Auto) (6003-0398) /uL Mcminn # (Auto) (0-900) /uL Eos # (Auto) (0-450) /uL Baso # (Auto) (0-100) /uL ESR (0-20) MM/HR Sodium (137-145) mmol/L Potassium (3.4-5.1) mmol/L Chloride (98-107) mmol/L Carbon Dioxide (22-32) mmol/L BUN (7-17) mg/dL Creatinine (0.52-1.04) mg/dL Estimated GFR (>60) mL/min BUN/Creatinine Ratio (6-22) Glucose (70-100) mg/dL Lactate 1.1 (0.7-2.1) mmol/L Calcium (8.4-10.2) mg/dL Total Bilirubin (0.2-1.3) mg/dL AST (14-36) IU/L ALT (<35) IU/L Alkaline Phosphatase (38-126) U/L C-Reactive Protein 2.3 H (<1.0) mg/dL Total Protein (6.3-8.2) g/dL Albumin (3.5-5.0) g/dL Globulin (1.7-4.1) g/dL Albumin/Globulin Ratio (1.0-2.8) MDM Narrative Medical decision making narrative: Differential diagnosis to consider but not limited to postoperative swelling versus is soft tissue infection. Transfer of care from Kendall Lyons PA-C to Dr. Vargas at 1999, 08/12/21. <Kira Vargas, - Last Filed: 08/13/21 01:31> Lab Data Labs: Lab Results 08/12/21 08/12/21 08/12/21 Range/Units 18:25 18:25 18:25 WBC 13.1 H (4.5-11.0) X10^3/uL RBC 4.62 (4.0-5.2) X10^6/uL Hgb 13.7 (12.0-16.0) g/dL Hct 40.2 (36-46) % MCV 87.2 (80-100) fL MCH 29.7 (26-34) PG MCHC 34.1 (30-36) % RDW 13.7 (11.6-14.8) % Plt Count 524 H (150-400) X10^3/uL Neut % (Auto) 72.7 (50-75) % Lymph % (Auto) 21.7 L (25-40) % Mcminn % (Auto) 3.8 (3-14) % Eos % (Auto) 1.3 L (2-4) % Baso % (Auto) 0.5 (0-2) % Neut # (Auto) 9500 H (0306-6649) /uL Lymph # (Auto) 2800 (1001-8650) /uL Mcminn # (Auto) 500 (0-900) /uL Eos # (Auto) 200 (0-450) /uL Baso # (Auto) 100 (0-100) /uL ESR 59 H (0-20) MM/HR Sodium 138 (137-145) mmol/L Potassium 4.1 (3.4-5.1) mmol/L Chloride 105 (98-107) mmol/L Carbon Dioxide 20 L (22-32) mmol/L BUN 9 (7-17) mg/dL Creatinine 0.37 L (0.52-1.04) mg/dL Estimated GFR > 60.0 (>60) mL/min BUN/Creatinine Ratio 24.3 H (6-22) Glucose 179 H (70-100) mg/dL Lactate (0.7-2.1) mmol/L Calcium 9.4 (8.4-10.2) mg/dL Total Bilirubin 0.5 (0.2-1.3) mg/dL AST 26 (14-36) IU/L ALT 15 (<35) IU/L Alkaline Phosphatase 114 (38-126) U/L C-Reactive Protein (<1.0) mg/dL Total Protein 8.1 (6.3-8.2) g/dL Albumin 4.4 (3.5-5.0) g/dL Globulin 3.7 (1.7-4.1) g/dL Albumin/Globulin Ratio 1.2 (1.0-2.8) 08/12/21 08/12/21 Range/Units 18:25 22:12 WBC (4.5-11.0) X10^3/uL RBC (4.0-5.2) X10^6/uL Hgb (12.0-16.0) g/dL Hct (36-46) % MCV (80-100) fL MCH (26-34) PG MCHC (30-36) % RDW (11.6-14.8) % Plt Count (150-400) X10^3/uL Neut % (Auto) (50-75) % Lymph % (Auto) (25-40) % Mcminn % (Auto) (3-14) % Eos % (Auto) (2-4) % Baso % (Auto) (0-2) % Neut # (Auto) (9998-8909) /uL Lymph # (Auto) (9519-0397) /uL Mcminn # (Auto) (0-900) /uL Eos # (Auto) (0-450) /uL Baso # (Auto) (0-100) /uL ESR (0-20) MM/HR Sodium (137-145) mmol/L Potassium (3.4-5.1) mmol/L Chloride (98-107) mmol/L Carbon Dioxide (22-32) mmol/L BUN (7-17) mg/dL Creatinine (0.52-1.04) mg/dL Estimated GFR (>60) mL/min BUN/Creatinine Ratio (6-22) Glucose (70-100) mg/dL Lactate 1.1 (0.7-2.1) mmol/L Calcium (8.4-10.2) mg/dL Total Bilirubin (0.2-1.3) mg/dL AST (14-36) IU/L ALT (<35) IU/L Alkaline Phosphatase (38-126) U/L C-Reactive Protein 2.3 H (<1.0) mg/dL Total Protein (6.3-8.2) g/dL Albumin (3.5-5.0) g/dL Globulin (1.7-4.1) g/dL Albumin/Globulin Ratio (1.0-2.8) Imaging Data CT scan - chest: Radiologist's Impression: PROCEDURE:? CT ANGIO CHEST ? INDICATIONS:? Shortness of breath, recent surgery ? TECHNIQUE:? After the administration of intravenous contrast, 2 mm thick sections acquired from the pulmonary apices to the posterior costophrenic angles.? 3-dimensional maximum intensity projection (MIP) coronal and sagittal reformats were then acquired through the thorax.? For radiation dose reduction, the following was used:? automated exposure control, adjustment of mA and/or kV according to patient size.? ? COMPARISON:? None. ? FINDINGS:? Image quality:? There is metallic streak artifact associated with patient's surgical hardware in the cervical spine.? ? Pulmonary arteries:? Pulmonary arteries are normal in size, and demonstrate no intraluminal filling defects to suggest central pulmonary embolism.? ? Lungs and pleura:? There is mild dependent atelectasis bilaterally.? No acute consolidation.? No pleural effusions or pneumothorax.? Central and peripheral airways are patent.? ? Mediastinum:? Heart size is normal, without pericardial effusion.? No mediastinal or hilar adenopathy by size criteria.? There are mildly prominent paratracheal lymph nodes at the thoracic inlet measuring up to 0.9 cm in short axis which are likely reactive.? Thoracic aorta is normal in caliber and enhancement.? There is mild concentric esophageal wall thickening distally. ? Bones and chest wall:? There is left prevertebral soft tissue swelling, edema, and fluid with small foci of gas along the lower cervical spine consistent with postsurgical changes from recent surgery.? No suspicious bony lesions.? Ribs and thoracic spine appear intact throughout.? Thyroid gland demonstrates no discrete nodules.? No axillary or supraclavicular adenopathy by size criteria.? There is a prominent left subpectoral lymph node measuring up to 0.9 cm in short axis which is likely reactive.? ? Abdomen:? Visualized upper abdominal solid organs appear normal in the early arterial phase of enhancement.? ? IMPRESSION:? ? 1. No evidence of pulmonary embolism. ? 2. No acute airspace consolidation in the lungs. ? 3. Prevertebral edema, fluid, and soft tissue gas in the lower cervical spine consistent with postsurgical changes.? ? ? Dictated by: Tyron Moreno M.D. on 08/12/2021 at 20:38 ? ? Approved by: Tyron Moreno M.D. on 08/12/2021 at 20:44 ? MDM Narrative Medical decision making narrative: Differential diagnosis to consider but not limited to postoperative swelling versus is soft tissue infection. Transfer of care from Kendall Lyons PA-C to Dr. Vargas at 1999, 08/12/21. Patient signed out to me. I seen and evaluated patient myself. She has had chills but no fever. She has no numbness tingling or weakness in her upper extremities in fact she says the numbness and tingling that she was feeling prior to her surgery has improved completely. She has had some difficulty swallowing last night she said previously she was doing okay. She feels like she can not take a deep breath. CT for PE is negative. CT of the soft tissue neck does show possible abscess and postsurgical changes. 2015Dr. Sahni, orthopedic updated patient's symptoms test results he did the surgery and is familiar with the patient. At this time not convinced that it is an abscess she does have mild leukocytosis of 13 but is febrile and overall appears well. Recommend steroids to go home with she has appointment with him next week. Strict return precautions if she gets a fever she is to return to ED immediately Patient overall does appear well she is not septic his explained Dr. Marshall recommendations which she understands and agrees with. This seems like a reasonable approach to me. Blood cultures are pending, but no antibiotics have been given. Discharge Plan Departure Patient Disposition: Home Clinical Impression: Post surgical complication Instructions: Spinal Fusion Activity Restrictions/Additional Instructions: *You have been diagnosed with spinal fusion *What to do: Today's found that you have postoperative swelling which is to be expected. Continue to follow instructions is. Monitor very closely for fever more than 100.4 for 1 hour for greater than 101. If you should develop a fever return to emergency department immediately. *Continue to take medications as directed Prednisone 40 mg once a day for 5 days, sent to [facility], start tomorrow *Follow up with your primary care provider in 2-3 days or call [phone] Dr. Miramontes as scheduled for next week *Return to ER if you should have fever, difficulty breathing, difficulty swallowing or any new, worsening or concerning symptoms Prescriptions: New prednisone 20 mg tablet 40 mg PO DAILY Qty: 10 0RF No Action amitriptyline 25 mg Tablet 25 mg PO BEDTIME 0RF oxycodone 5 mg Tablet 5 mg PO BID 0RF Jardiance 10 mg Tablet 10 mg PO DAILY 0RF acetaminophen 500 mg Capsule 1,000 mg PO QD-BID PRN (Reason: Pain) 0RF docusate sodium 100 mg Capsule 100 mg PO BID PRN (Reason: constipation) Qty: 60 2RF hydroxyzine pamoate 25 mg Capsule 50 mg PO Q4HR PRN (Reason: muscle spasm) Qty: 120 1RF oxycodone 5 mg Tablet 10 mg PO Q4HR PRN (Reason: pain, severe) Qty: 60 0RF metformin 1,000 mg tablet 1,000 mg PO BID 0RF liraglutide [Victoza 2-Roberto Carlos] 0.6 mg/0.1 mL (18 mg/3 mL) pen injector 1.8 mg SUBCUT DAILY 0RF Referrals: Giselle Hampton PA-C [Primary Care Provider] - <Kira Vargas DO - Last Filed: 08/13/21 01:31> Cosign ED Attending Cosignature Attestation: I was immediately available in the department for consultation. Documentation has been reviewed. I agree with assessment and plan.
--- NOTE | 2021-08-12 19:18 | DI.CT.S_ITS ---
PROCEDURE: CT ANGIO CHEST INDICATIONS: Shortness of breath, recent surgery TECHNIQUE: After the administration of intravenous contrast, 2 mm thick sections acquired from the pulmonary apices to the posterior costophrenic angles. 3-dimensional maximum intensity projection (MIP) coronal and sagittal reformats were then acquired through the thorax. For radiation dose reduction, the following was used: automated exposure control, adjustment of mA and/or kV according to patient size. COMPARISON: None. FINDINGS: Image quality: There is metallic streak artifact associated with patient's surgical hardware in the cervical spine. Pulmonary arteries: Pulmonary arteries are normal in size, and demonstrate no intraluminal filling defects to suggest central pulmonary embolism. Lungs and pleura: There is mild dependent atelectasis bilaterally. No acute consolidation. No pleural effusions or pneumothorax. Central and peripheral airways are patent. Mediastinum: Heart size is normal, without pericardial effusion. No mediastinal or hilar adenopathy by size criteria. There are mildly prominent paratracheal lymph nodes at the thoracic inlet measuring up to 0.9 cm in short axis which are likely reactive. Thoracic aorta is normal in caliber and enhancement. There is mild concentric esophageal wall thickening distally. Bones and chest wall: There is left prevertebral soft tissue swelling, edema, and fluid with small foci of gas along the lower cervical spine consistent with postsurgical changes from recent surgery. No suspicious bony lesions. Ribs and thoracic spine appear intact throughout. Thyroid gland demonstrates no discrete nodules. No axillary or supraclavicular adenopathy by size criteria. There is a prominent left subpectoral lymph node measuring up to 0.9 cm in short axis which is likely reactive. Abdomen: Visualized upper abdominal solid organs appear normal in the early arterial phase of enhancement. IMPRESSION: 1. No evidence of pulmonary embolism. 2. No acute airspace consolidation in the lungs. 3. Prevertebral edema, fluid, and soft tissue gas in the lower cervical spine consistent with postsurgical changes. Dictated by: Tyron Moreno M.D. on 08/12/2021 at 20:38 Approved by: Tyron Moreno M.D. on 08/12/2021 at 20:44
--- NOTE | 2021-08-12 19:18 | DI.CT.S_ITS ---
PROCEDURE: CT SOFT TISSUE NECK W CON INDICATIONS: Neck surgery, difficulty swallowing TECHNIQUE: After the administration of intravenous contrast, 3.0 mm axial sections acquired from the sella to the aortic arch. Additional oblique axial 3.0 mm sections acquired through the pharynx. 3 mm thick coronal and sagittal reformats were generated. For radiation dose reduction, the following was used: automated exposure control. COMPARISON: [facility], CT, CT ANGIO CHEST, 08/12/2021, 19:59. FINDINGS: Image quality: Excellent. Lymph nodes: There are mildly enlarged right paratracheal lymph nodes at the thoracic inlet measuring up to 0.9 cm in short axis. There are bilateral mildly enlarged level 2 lymph nodes measuring up to 0.9 cm. Findings are nonspecific but likely reactive. Vessels: Visualized vasculature appears patent. Neck spaces: The oropharynx, nasopharynx, and pharynx demonstrate no mucosal lesions. The vocal cords, false vocal cords, pyriform sinuses, epiglottis, vallecula, and tongue base all appear normal. Extramucosal spaces appear unremarkable. Glands: The parotid and submandibular glands appear normal. Thyroid gland demonstrates no discrete nodules. There is mild hypoattenuation posteriorly along the left lobe which may reflect sequelae recent surgery. Miscellaneous: There is prevertebral soft tissue swelling and edema along the cervical spine consistent with sequelae of recent surgery. In addition, there is a curvilinear left anterior loculated fluid collection with peripheral enhancement measuring approximately 3.3 x 0.7 x 4.3 cm in the surgical bed. There are associated internal foci of gas. The collection is contiguous with the left aspect of the esophagus. Visualized brain and orbits appear normal. Lung apices appear clear. Bones: There are postsurgical changes consistent with recent ACDF at C5-C7. Surgical hardware appears intact. There are intervertebral spacers at C5-C6 and C6-C7. No discrete bony erosions or suspicious lucencies along the surgical hardware. No suspicious bony lesions. Visualized sinuses and mastoids appear unremarkable. IMPRESSION: 1. Postsurgical changes demonstrated status post recent ACDF at C5-C7. 2. Associated loculated peripherally enhancing left prevertebral collection tracking along the surgical bed is suspicious for an abscess. The differential includes a postsurgical seroma. Dictated by: Tyron Moreno M.D. on 08/12/2021 at 20:59 Approved by: Tyron Moreno M.D. on 08/12/2021 at 21:15
[2021-08-12 19:37] LABS: Add Manual Diff / Slide Review NO; Basophils Absolute Auto 100 /uL (0-100); Basophils Percent Auto 0.5 % (0-2); Eosinophils Absolute Auto 200 /uL (0-450); Eosinophils Percent Auto 1.3 % (2-4); Hematocrit 40.2 % (36-46); Hemoglobin 13.7 g/dL (12.0-16.0); Lymphocytes Absolute Auto 2800 /uL (1100-4500); Lymphocytes Percent Auto 21.7 % (25-40); Mean Corpuscular HGB Conc 34.1 % (30-36); Mean Corpuscular Hemoglobin 29.7 PG (26-34); Mean Corpuscular Volume 87.2 fL (80-100); Monocytes Absolute Auto 500 /uL (0-900); Monocytes Percent Auto 3.8 % (3-14); Neutrophils Absolute Auto 9500 /uL (1500-7000); Neutrophils Percent Auto 72.7 % (50-75); Platelet Count 524 X10^3/uL (150-400); Red Blood Cell Count 4.62 X10^6/uL (4.0-5.2); Red Cell Distribution Width 13.7 % (11.6-14.8); White Blood Cell Count 13.1 X10^3/uL (4.5-11.0)
[2021-08-12 19:42] LABS: Alanine Aminotransferase 15 IU/L (<35); Albumin 4.4 g/dL (3.5-5.0); Albumin Globulin Ratio 1.2 (1.0-2.8); Alkaline Phosphatase 114 U/L (38-126); Aspartate Aminotransferase 26 IU/L (14-36); BUN Creatinine Ratio 24.3 (6-22); Bilirubin Total 0.5 mg/dL (0.2-1.3); Blood Urea Nitrogen 9 mg/dL (7-17); Calcium 9.4 mg/dL (8.4-10.2); Carbon Dioxide 20 mmol/L (22-32); Chloride 105 mmol/L (98-107); Estimated Glomerular Filt Rate > 60.0 mL/min (>60); Globulin 3.7 g/dL (1.7-4.1); Glucose 179 mg/dL (70-100); HEMOLYSIS < 15 (0-50); Potassium 4.1 mmol/L (3.4-5.1); Sodium 138 mmol/L (137-145); Total Protein 8.1 g/dL (6.3-8.2)
[2021-08-12 22:34] LABS: C-Reactive Protein Quant 2.3 mg/dL (<1.0)
[2021-08-12 22:39] LABS: Lactate (Lactic Acid) 1.1 mmol/L (0.7-2.1)
[2021-08-12 22:44] LABS: Erythrocyte Sedimentation Rate 59 MM/HR (0-20)
[2021-08-12 23:02] VITALS: BP 144/77; PULSE 69; RESP 16; O2SAT 98
== END 2021-08-12 23:03 | disposition home or self-care (01) ==
PROVIDERS: Physician Assistant; Emergency Provider Emergency Medicine; PCP Physician Assistant
DX: G97.82 Other postprocedural complications and disorders of nervous system (principal)
CPT/HCPCS: 36415; 70491; 71275; 80053; 83605; 85025; 85651; 86140; 87040; 96374; 96375; 99284; J1100; J1885; Q9967